=== PATIENT | male | born 1960 | race Caucasian/White ===

== ENCOUNTER 2018-01-18 21:38 | Inpatient (IN) | payer BC ==
[2018-01-18] MEDS ORDERED: SODIUM CHLORIDE 0.9% 1,000 ML IV STA ×2 (22:03)
[2018-01-18] MEDS ORDERED: ONDANSETRON 4 MG/2 ML VIAL IVP STA (22:03)
[2018-01-18] MEDS ORDERED: MORPHINE SULFATE 4 MG/ML SYRINGE IV STA (22:03)
--- NOTE | 2018-01-18 22:04 | ED ---
Chest Pain HPI - General Chief Complaint: Chest Pain Stated Complaint: Chest Pain Source: patient, RN notes reviewed, old records reviewed Mode of arrival: EMS Limitations: no limitations - History of Present Illness Initial Comments: This is a 57-year-old male the ER for evaluation patient is ER for evaluation of chest pain history of high blood pressure recent travel history no sick contacts, patient was playing best [employer] and began x-rays chest on the way home diaphoresis and shortness of breath went home be admitted for continued chest pain again no symptoms of syncope and acute the emergency room by EMS. Patient was given nitro with no help MD Complaint: chest pain -: hour(s) (2) Onset: during exertion Pain Location: left chest Pain Radiation: back Severity: moderate Severity scale (1-10): 5 Quality: tightness, heaviness Consistency: constant Improves With: nothing Worsens With: nothing Anginal Symptoms: diaphoresis, dyspnea Other Symptoms: palpitations Treatments Prior to Arrival: none - Related Data Home Medications Medication Instructions Recorded Confirmed Fexofenadine/Pseudoephedrine 1 tab PO DAILY 01/19/18 01/19/18 [Zina-D 24 Hour Tablet] Lisinopril [Zestril] 5 mg PO DAILY 01/19/18 01/19/18 Montelukast [Singulair] 10 mg PO HS 01/19/18 01/19/18 Secukinumab [Cosentyx Pen] 300 mg SQ PHILLIPS 01/19/18 01/19/18 Allergies Allergy/AdvReac Type Severity Reaction Status Date / Time No Known Allergies Allergy Verified 01/19/18 09:47 Review of Systems ROS Statement: Those systems with pertinent positive or pertinent negative responses have been documented in the HPI. ROS Other: All systems not noted in ROS Statement are negative. EKG Findings - EKG Comments: EKG Findings:: EKG shows sinus rhythm rate of 62, OK 154, QRS 90, QTc 443. Repeat. EKG shows sinus bradycardia rate of 58, OK 136, QRS 74, QTc 435 Past Medical History Past Medical History: Skin Disorder History of Any Multi-Drug Resistant Organisms: None Reported Past Surgical History: Appendectomy, Hernia Repair Additional Past Surgical History / Comment(s): facial surgery Past Psychological History: No Psychological Hx Reported Smoking Status: Never smoker Past Alcohol Use History: Rare Past Drug Use History: None Reported - Past Family History Father Additional Family Medical History / Comment(s): STROKE Mother Additional Family Medical History / Comment(s): VASCULAR TO LOWER EXT General Exam Limitations: no limitations General appearance: alert, in no apparent distress Head exam: Present: atraumatic, normocephalic, normal inspection Eye exam: Present: normal appearance, PERRL, EOMI. Absent: scleral icterus, conjunctival injection, periorbital swelling ENT exam: Present: normal exam, mucous membranes moist Neck exam: Present: normal inspection. Absent: tenderness, meningismus, lymphadenopathy Respiratory exam: Present: normal lung sounds bilaterally. Absent: respiratory distress, wheezes, rales, rhonchi, stridor Cardiovascular Exam: Present: regular rate, normal rhythm, normal heart sounds. Absent: systolic murmur, diastolic murmur, rubs, gallop, clicks GI/Abdominal exam: Present: soft, normal bowel sounds. Absent: distended, tenderness, guarding, rebound, rigid Extremities exam: Present: normal inspection, full ROM, normal capillary refill. Absent: tenderness, pedal edema, joint swelling, calf tenderness Back exam: Present: normal inspection Neurological exam: Present: alert, oriented X3, CN II-XII intact Psychiatric exam: Present: normal affect, normal mood Skin exam: Present: warm, dry, intact, normal color. Absent: rash Course Vital Signs 01/18/18 01/18/18 01/18/18 21:50 22:10 23:36 Temperature 97.9 F 99.1 F Pulse Rate 64 63 66 Respiratory 18 20 19 Rate Blood Pressure 126/85 128/92 156/88 O2 Sat by Pulse 99 99 99 Oximetry - Reevaluation(s) Reevaluation #1: Medical record is reviewed Patient is having persistent chest pain Spoke with cardiology regarding patient and troponin, they are aware and will evaluate patient in the morning Studies CTA chest is negative for acute disease Chest Pain MDM - Differential Diagnosis ACS - MDM 57 male the ER for evaluation of chest pain acute chest pain classic chest pain of left-sided chest pain weakness shortness of breath. Patient be admitted and anticoagulation for cardiology evaluation Critical Care Time Critical Care Time: Yes Total Critical Care Time: 31 Disposition Clinical Impression: Chest pain Disposition: ADMITTED IP TO THIS HOSP Condition: Undetermined Is patient prescribed a controlled substance at d/c from ED?: No
[2018-01-18 22:33] LABS: Basophils % (A) 0 %; Eosinophils % (A) 0 %; HGB 14.9 gm/dL (13.0-17.5); Lymphocytes # (A) 1.2 k/uL (1.0-4.8); Lymphocytes % (A) 9 %; MCH 30.4 pg (25.0-35.0); MCHC 35.4 g/dL (31.0-37.0); MCV 85.9 fL (80.0-100.0); Mean Platelet Volume 7.3; Monocytes # (A) 0.5 k/uL (0-1.0); Monocytes % (A) 3 %; Neutrophils # (A) 12.6 k/uL (1.3-7.7); Neutrophils % (A) 87 %; Platelet Count 222 k/uL (150-450); RBC 4.89 m/uL (4.30-5.90); RDW 12.3 % (11.5-15.5); WBC 14.5 k/uL (3.8-10.6)
[2018-01-18 22:36] LABS: Calcium 9.5 mg/dL (8.4-10.2); Magnesium 1.6 mg/dL (1.6-2.3); Potassium 3.4 mmol/L (3.5-5.1); Total Bilirubin 0.4 mg/dL (0.2-1.3); Total Protein 6.7 g/dL (6.3-8.2)
[2018-01-18 22:46] LABS: D-Dimer 0.5 mg/L FEU (<0.60); INR 1.1 (<1.2); Prothrombin Time 10.4 sec (9.0-12.0)
[2018-01-18 22:47] LABS: Partial Thromboplastin Time 20.2 sec (22.0-30.0)
[2018-01-18 22:48] LABS: Troponin I 0.032 ng/mL (0.000-0.034)
--- NOTE | 2018-01-18 23:19 | CT ---
EXAMINATION TYPE: CT angio chest DATE OF EXAM: 01/18/2018 11:04 PM COMPARISON: None HISTORY: Chest pain after exertion. CT DLP: 306.7 mGycm Automated exposure control for dose reduction was used. CONTRAST: CTA scan of the thorax is performed with IV Contrast, patient injected with 100ml mL of Isovue 370, p ulmonary embolism protocol. There are 3-D post processed images.. FINDINGS: The lungs are clear of infiltrate. There is no evidence of a pulmonary mass. There is no pleural effu esther. Heart size is normal. There is no pericardial effusion. There is normal contrast opacification of the pulmonary arteries. There are no filling defects. There are no hilar masses. There is no mediastinal adenopathy. The bony thorax is intact. There is mild sp urring in the thoracic spine. IMPRESSION: NEGATIVE EXAM. NO EVIDENCE OF PULMONARY EMBOLISM.
--- NOTE | 2018-01-19 00:15 | CT ---
EXAMINATION TYPE: CT abdomen pelvis w con DATE OF EXAM: 01/18/2018 COMPARISON: None HISTORY: Chest pain after exertion. CT DLP: 768.2 mGycm Automated exposure control for dose reduction was used. TECHNIQUE: Helical acquisition of images was performed from the lung bases through the pelvis. CONTRAST: Performed without Oral Contrast and with IV Contrast, patient injected with 100ml mL of Isovue 370. FINDINGS: Lung bases are clear. There is no pleural effusion. Heart size is normal. There is no pericardial eff usion. There is 1 cm cyst in the left lobe of the liver. There are 1 cm cyst in the inferior right lobe of t he liver. There is 2 cm cyst in the anterior right lobe of the liver adjacent to the gallbladder. The bile ducts are not dilated. Spleen appears normal. There is no pancreatic mass. The stomach is large . There is no adrenal mass. Kidneys show satisfactory contrast opacification. There is no hydronephrosis. There is no retroperito susie adenopathy. Bladder distends smoothly. There is no inguinal hernia. There is no free fluid in th e pelvis. There is some retained fecal material throughout the large bowel. There is no mesenteric ed kerri or adenopathy. Appendix appears normal. There is L5 spondylolysis. There is a second-degree L5-S1 spondylolisthesis. IMPRESSION: SMALL HEPATIC CYSTS. No evidence of appendicitis. Mild constipation. Second-degree L5-S1 spondylolisthesis.
[2018-01-19] MEDS ORDERED: HEPARIN SODIUM,PORCINE 5,000 UNIT/ML 1 ML VIAL IV ONE (00:17)
[2018-01-19] MEDS ORDERED: MORPHINE SULFATE 2 MG/ML SYRINGE IVP PRN (00:17)
[2018-01-19] MEDS ORDERED: HEPARIN SODIUM,PORCINE 5,000 UNIT/ML 1 ML VIAL IV PRN (00:17)
[2018-01-19] MEDS ORDERED: NITROGLYCERIN SL TABS 0.4 MG TAB SUBLINGUAL PRN ×2 (00:17→06:40)
[2018-01-19] MEDS: HEPARIN SOD,PORK IN 0.45% NACL 25,000 UNIT in 0.45% NACL 1 500ML.BAG IV SCH ×2 (00:37→00:39)
[2018-01-19 01:36] VITALS: BMI 24.3
[2018-01-19 03:28] LABS: Mean Platelet Volume 6.8; Platelet Count 210 k/uL (150-450)
[2018-01-19 04:02] LABS: Creatine Kinase MB 40.8 ng/mL (0.0-2.4)
[2018-01-19 04:28] LABS: Troponin I 1.89 ng/mL (0.000-0.034)
[2018-01-19] MEDS: METOPROLOL TARTRATE 25 MG TAB PO SCH ×2 (06:34→20:56)
[2018-01-19] MEDS: ATORVASTATIN 80 MG TAB PO SCH (06:34)
[2018-01-19] MEDS ORDERED: ALPRAZolam 0.25 MG TAB PO PRN (06:40)
[2018-01-19] MEDS ORDERED: ALPRAZolam 0.5 MG TAB PO PRN (06:40)
[2018-01-19] MEDS ORDERED: SODIUM CHLORIDE 0.9% 1,000 ML in EMPTY BAG 1 BAG IV ONE (06:40)
[2018-01-19] MEDS ORDERED: ASPIRIN 325 MG TAB PO ONE (06:40)
[2018-01-19] MEDS ORDERED: ATORVASTATIN 80 MG TAB PO ONE (06:40)
[2018-01-19] MEDS ORDERED: IV FLUID CONTINUATION 350 ML IV ONE (06:55)
--- NOTE | 2018-01-19 06:57 | CONS ---
CONSULTATION Mr. 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 His discomfort started yesterday about 10 minutes after finishing his basketball game and driving home. It was persisting with radiating across the chest. He came into the emergency room and persisted in having discomfort throughout the night. The patient has no prior similar symptoms. He is usually active physically without difficulty, has no exertional chest pain on a regular basis. No dizziness. No palpitation. No syncope. No PND, orthopnea. No peripheral edema. His coronary risk factors are positive for hypertension. He is nondiabetic. Nonsmoker. His lipid profile has been stable. There is no family history of premature coronary disease. MEDICATION: At home include lisinopril 5 mg daily and Singulair 10 mg daily. REVIEW OF SYSTEMS: RESPIRATORY system: He has no history of documented asthma, emphysema or bronchitis. GI system: No recent GI bleeding. No peptic ulcer disease. system: No dysuria or hematuria. Nervous system: No stroke or seizure. PHYSICAL EXAMINATION: He is a 57-year-old male, alert, oriented, in no apparent distress. Blood pressure 143/80 with a heart rate in the 60s. HEAD: Normocephalic. Eyes sclerae anicteric. Neck: Good upstroke. No bruit. No jugular venous distention. LUNGS: Clear to auscultation. HEART: Regular rate and rhythm S1, S2. No S3. No S4. No murmur or rub. ABDOMEN: Soft, nontender. Positive bowel sounds. No megaly. EXTREMITIES: No edema. Intact distal pulses. LAB DATA: Lab data revealed troponin 0.032 and 1.89, BUN and creatinine 28 and 1.12. Potassium 3.4. Hemoglobin 14.9, white blood cell 14.5. CT angiogram of the chest revealed no evidence of pulmonary embolism. His CT scan of the abdomen showed 2nd degree L5-S1 spondylolysis. EKG revealed a sinus mechanism, normal axis, evidence of left ventricular hypertrophy with nonspecific ST-segment changes with T-wave inversion in leads 3 and AVF. IMPRESSION: 1. Chest discomfort with minimal troponin elevation suggestive of non ST-segment elevation myocardial infarction. 2. History of hypertension. RECOMMENDATION: In view of findings and anatomy, I have recommended proceeding with coronary angiography to assess his status and guide his treatment. The rationale behind the procedure as well as risks and complications were discussed with the patient and his and they are in full understanding and agreement. Thank you for this consult. We will follow with you. CHARLEY / STEPHEN: [id number] /
[2018-01-19] MEDS ORDERED: LIDOCAINE 1% INJ 10MG/ML (20 ML MDV) ONE (07:05)
[2018-01-19] MEDS ORDERED: HEPARIN SODIUM 1,000 UN/ML (10ML VL) ONE (07:06)
[2018-01-19] MEDS ORDERED: VERAPAMIL 2.5 MG/ML 2 ML AMP ONE (07:06)
[2018-01-19] MEDS ORDERED: fentaNYL (PF) 50 MCG/ML 2 ML AMP ONE (07:06)
[2018-01-19] MEDS ORDERED: fentaNYL (PF) 50 MCG/ML 2 ML AMP IV ONE (07:09)
[2018-01-19] MEDS ORDERED: LIDOCAINE 1% INJ 10MG/ML (20 ML MDV) SQ ONE (07:10)
[2018-01-19] MEDS ORDERED: VERAPAMIL SYRINGE (5 MG/10 ML) INTRAARTER ONE (07:15)
[2018-01-19] MEDS ORDERED: NITROGLYCERIN 1000MCG/10ML SYRINGE INTRACORON ONE (07:35)
[2018-01-19] MEDS ORDERED: ADENOSINE 90 MG in SODIUM CHLORIDE 0.9% 60 ML IVP ONE (07:36)
[2018-01-19] MEDS ORDERED: CLOPIDOGREL 75 MG TAB ONE (07:40)
[2018-01-19] MEDS ORDERED: IOPAMIDOL-300 50ML BTL INJ ONE (07:44)
[2018-01-19] MEDS ORDERED: CLOPIDOGREL 75 MG TAB PO ONE (07:44)
[2018-01-19] MEDS ORDERED: IOPAMIDOL-370 125ML BTL INJ ONE (07:44)
[2018-01-19] MEDS ORDERED: RX INFO: IV CONTRAST WAS GIVEN 1 EACH MISC MISCELLANE PRN (08:02)
[2018-01-19] MEDS ORDERED: SODIUM CHLORIDE 0.9% 1,000 ML IV SCH (08:15)
--- NOTE | 2018-01-19 08:42 | CC ---
CARDIAC CATHETERIZATION REPORT Mr. Lopes is a 57-year-old male with no prior documented history of coronary artery disease who yesterday complained of substernal chest discomfort that persisted. His EKG showed no acute changes, but his troponin was mildly elevated. In view of that, recommendation was made regarding cardiac catheterization. The procedure as well as the risks and complications were discussed with the patient who is in full understanding and agreement. PROCEDURE: Patient was brought to [facility] in the fasting semi-sedated state after receiving fentanyl and Benadryl and achieving moderate conscious sedated state. Using Xylocaine anesthesia in the Seldinger technique, a 6-Kiswahili sheath was introduced in the right radial artery. Selective right and left coronary angiography performed using 5-Kiswahili 3.5 bend, right and left Yeimy catheters. Multiple views of the coronary artery including hemiaxial views were obtained. Following that a 5-Kiswahili tight pigtail catheter was introduced in the left ventricle and a 30-degree PATEL view of the left ventricle was obtained. Following that, a 6-Kiswahili FL3.5 guiding catheter introduced in the system and after cannulating the left main a Doppler flow wire was advanced and positioned in distal LAD. Subsequently, iFR and FFR were calculated after an infusion of adenosine per protocol. Following that, wire was withdrawn and catheter was removed. Sheath was removed. Hemostasis was obtained with deployment of a TR band. There was no immediate complication. Patient was returned to his room in stable condition. Of note, the patient received 5000 units of intravenous heparin as well as intra-arterial verapamil. FINDINGS: LEFT MAIN: This is a large-sized vessel bifurcating left circumflex, left anterior descending artery. The left main coronary artery has no evidence of high-grade stenosis. LEFT ANTERIOR DESCENDING ARTERY: This is a large-sized vessel reaching to the apex with a wraparound apex segment giving rise to a large proximal diagonal branch. At the takeoff of the first septal orthotic technician, there is a plaque of about 30% to 40%. The first septal orthotic technician has an intraluminal thrombus. It is not large in caliber. The rest of the vessel has no high-grade stenosis. LEFT CIRCUMFLEX: This is a nondominant vessel, large in caliber giving rise to 3 obtuse marginal branches of small to moderate caliber. The left circumflex in the mid segment has mild obstructive disease of 20% to 30% without any evidence of high-grade stenosis. RIGHT CORONARY ARTERY: This is a large dominant vessel bifurcating distally PDA and posterolateral segment and branches. The right coronary artery has mild plaque proximally of 10% without any evidence of high-grade stenosis LEFT VENTRICULOGRAM: Left ventriculogram was performed in 30-degree PATEL view and revealed a normal left ventricular size. There was minimal apical hypokinesis. Ejection fraction is 50%. There was no significant mitral regurgitation. HEMODYNAMICS: There was no gradient across the aortic valve. The left ventricular end- diastolic pressure was 18 to 20 mmHg. Fractional flow reserve in the LAD was 90% and iFR was 94%. RESULTS: 1. Moderate plaque in the proximal left anterior descending artery with the appearance of intracoronary thrombus in the first septal orthotic technician. 2. Mild disease in the left circumflex and the right coronary artery. 3. Minimally impaired left ventricular systolic function. 4. Non hemodynamically significant lesion in the left anterior descending artery by fractional flow reserve. RECOMMENDATION: In view of finding anatomy, recommend to continue medical therapy with aggressive coronary risk modifications that have been initiated. It is possible that the patient has a plaque rupture involving the septal orthotic technician and maybe the proximal LAD. Those findings and recommendations were discussed with the patient and his family and they are in full understanding and agreement. Duration of procedure: 35 minutes. MMODL / IJN: [id number] /
[2018-01-19] MEDS: LISINOPRIL 5 MG TAB PO SCH (10:16)
[2018-01-19 10:57] LABS: Cholesterol 200 mg/dL (<200); HDL Cholesterol 52 mg/dL (40-60); LDL Cholesterol,Calculated 137 mg/dL (0-99); Triglycerides 54 mg/dL (<150)
[2018-01-19 11:47] LABS: Creatine Kinase MB 91.3 ng/mL (0.0-2.4)
--- NOTE | 2018-01-19 12:08 | ECHOF ---
Referral Reason:cp MEASUREMENTS -------- HEIGHT: 175.3 cm WEIGHT: 74.8 kg BP: 143/81 RVIDd: 2.7 cm (< 3.3) IVSd: 1.1 cm (0.6 - 1.1) LVIDd: 5.1 cm (3.9 - 5.3) LVPWd: 1.0 cm (0.6 - 1.1) IVSs: 1.4 cm LVIDs: 4.0 cm LVPWs: 1.4 cm LAESV Index (A-L): 25.58 ml/m Ao Diam: 3.2 cm (2.0 - 3.7) AV Cusp: 2.0 cm (1.5 - 2.6) LA Diam: 3.0 cm (2.7 - 3.8) EPSS: 0.9 cm MV E Juancho: 0.71 m/s MV DecT: 217 ms MV A Juancho: 0.51 m/s MV E/A Ratio: 1.38 RAP: 5.00 mmHg RVSP: 18.14 mmHg MV EF SLOPE: 164.45 mm/s (70 - 150) MV EXCURSION: 2.22 cm (> 18.000) FINDINGS -------- Resting bradycardia (HR<60bpm). This was a technically good study. The left ventricular size is normal. There is borderline concentric left ventricular hypertrophy. Overall left ventricular systolic function is mildly impaired with, an EF between 45 - 50 %. Infer iorlateral Hypokinesis Inferior Hypokinesis The right ventricle is normal in size and function. Normal LA size by volume 22+/-6 ml/m2. The right atrium is normal in size. Aortic valve is trileaflet and is mildly thickened. There is no evidence of aortic regurgitation. There is no evidence of aortic stenosis. The mitral valve leaflets are mildly thickened. There is trace to mild mitral regurgitation. Trace tricuspid regurgitation present. Right ventricular systolic pressure is normal at < 35 mmHg. There is no evidence of pulmonary hypertension. Trace/mild (physiologic) pulmonic regurgitation. The aortic root size is normal. Normal inferior vena cava with normal inspiratory collapse consistent with estimated right atrial pre ssure of 5 mmHg. There is no pericardial effusion. CONCLUSIONS -------- 1. Resting bradycardia (HR<60bpm). 2. This was a technically good study. 3. The left ventricular size is normal. 4. There is borderline concentric left ventricular hypertrophy. 5. Overall left ventricular systolic function is mildly impaired with, an EF between 45 - 50 %. 6. Inferiorlateral Hypokinesis 7. Inferior Hypokinesis 8. Normal LA size by volume 22+/-6 ml/m2. 9. Aortic valve is trileaflet and is mildly thickened. 10. The mitral valve leaflets are mildly thickened. 11. There is trace to mild mitral regurgitation. 12. Trace tricuspid regurgitation present. 13. Right ventricular systolic pressure is normal at < 35 mmHg. 14. There is no evidence of pulmonary hypertension. 15. Trace/mild (physiologic) pulmonic regurgitation. 16. The aortic root size is normal. 17. There is no pericardial effusion. BIOMEDICAL SERVICE ENGINEER: Salty Hodge RDCS
--- NOTE | 2018-01-19 12:19 | P.HPIM ---
History of Present Illness Patient is a pleasant 56-year-old gentleman with the no known not coronary artery disease history came in with compensative chest pressure like sensation after playing basketball and the when he was driving home and constant pain pressure-like sensation moderate in severity partially resolved with nitroglycerin with a associate shortness of breath denied any lightheadedness and diaphoresis patient is found to have elevated troponin of 1.8 patient underwent cardiac catheterization and believed to have plaque rupture, did not receive any stents. Medical therapy was initiated with Metoprolol statin lisinopril and the antiplatelet therapy. Patient will be monitored overnight patient denied any fever chills cough runny nose. Patient did not have any significant EKG changes. His chest pain radiated across the chest Review of Systems REVIEW OF SYSTEMS: CONSTITUTIONAL: No fever, no malaise, no fatigue. HEENT: No recent visual problems or hearing problems. Denied any sore throat. CARDIOVASCULAR: No orthopnea, PND, no palpitations, no syncope. PULMONARY: no cough, no hemoptysis. GASTROINTESTINAL: No diarrhea, no nausea, no vomiting, no abdominal pain. Normoactive bowel sounds. NEUROLOGICAL: No headaches, no weakness, no numbness. HEMATOLOGICAL: Denies any bleeding or petechiae. GENITOURINARY: Denies any burning micturition, frequency, or urgency. MUSCULOSKELETAL/RHEUMATOLOGICAL: Denies any joint pain, swelling, or any muscle pain. ENDOCRINE: Denies any polyuria or polydipsia. The rest of the 14-point review of systems is negative. Past Medical History Past Medical History: Chest Pain / Angina, Hypertension, Skin Disorder History of Any Multi-Drug Resistant Organisms: None Reported Past Surgical History: Appendectomy, Hernia Repair Additional Past Surgical History / Comment(s): facial surgery Past Psychological History: No Psychological Hx Reported Smoking Status: Never smoker Past Alcohol Use History: Rare Past Drug Use History: None Reported - Past Family History Father Additional Family Medical History / Comment(s): STROKE Mother Additional Family Medical History / Comment(s): VASCULAR TO LOWER EXT Medications and Allergies Home Medications Medication Instructions Recorded Confirmed Type Fexofenadine/Pseudoephedrine 1 tab PO DAILY 01/19/18 01/19/18 History [Zina-D 24 Hour Tablet] Lisinopril [Zestril] 5 mg PO DAILY 01/19/18 01/19/18 History Montelukast [Singulair] 10 mg PO HS 01/19/18 01/19/18 History Secukinumab [Cosentyx Pen] 300 mg SQ PHILLIPS 01/19/18 01/19/18 History Allergies Allergy/AdvReac Type Severity Reaction Status Date / Time No Known Allergies Allergy Verified 01/19/18 09:47 Physical Exam Vitals: Vital Signs Temp Pulse Pulse Resp BP BP Pulse Ox 01/19/18 12:00 57 L 01/19/18 11:35 57 L 16 115/69 98 01/19/18 10:15 62 18 119/69 96 01/19/18 09:45 50 L 18 117/78 96 01/19/18 09:15 54 L 18 120/73 96 01/19/18 09:00 53 L 16 118/72 97 01/19/18 08:45 54 L 16 120/76 95 01/19/18 08:32 97.1 F L 52 L 16 116/79 98 01/19/18 08:00 52 L 01/19/18 03:32 97.6 F 59 L 16 143/81 99 01/19/18 01:05 98.3 F 59 L 16 136/85 98 01/18/18 23:36 99.1 F 66 19 156/88 99 01/18/18 22:10 63 20 128/92 99 01/18/18 21:50 97.9 F 64 18 126/85 99 Intake and Output 01/18/18 01/19/18 01/19/18 22:59 06:59 14:59 Intake Total 250.599 261.75 Balance 250.599 261.75 Intake: IV 250 21.75 Intake, IV Titration 0.599 Amount Heparin Sod,Pork in 0.45% 0.599 NaCl 25,000 unit In 0.45 % NaCl 1 500ml.bag @ 12 UNITS/KG/HR 17.96 mls/hr IV .Q24H [facility] Rx#: [id number] Oral 240 Other: Weight 74.843 kg 74.843 kg PHYSICAL EXAMINATION: GENERAL: The patient is alert and oriented x3, not in any acute distress. Well developed, well nourished. HEENT: Pupils are round and equally reacting to light. EOMI. No scleral icterus. No conjunctival pallor. Normocephalic, atraumatic. No pharyngeal erythema. No thyromegaly. CARDIOVASCULAR: S1 and S2 present. No murmurs, rubs, or gallops. PULMONARY: Chest is clear to auscultation, no wheezing or crackles. ABDOMEN: Soft, nontender, nondistended, normoactive bowel sounds. No palpable organomegaly. MUSCULOSKELETAL: No joint swelling or deformity. EXTREMITIES: No cyanosis, clubbing, or pedal edema. NEUROLOGICAL: Gross neurological examination did not reveal any focal deficits. SKIN: No rashes. Results CBC & Chem 7: 01/19/18 03:18 01/18/18 22:05 Labs: Abnormal Lab Results - Last 24 Hours (Table) 01/18/18 01/18/18 01/18/18 Range/Units 22:05 22:05 22:05 WBC 14.5 H (3.8-10.6) k/uL Neutrophils # 12.6 H (1.3-7.7) k/uL APTT (22.0-30.0) sec Potassium 3.4 L (3.5-5.1) mmol/L Chloride 108 H (98-107) mmol/L BUN 28 H (9-20) mg/dL Glucose 124 H (74-99) mg/dL Total Creatine Kinase 225 H (55-170) U/L CK-MB (CK-2) 5.0 H (0.0-2.4) ng/mL Troponin I (0.000-0.034) ng/mL Cholesterol (<200) mg/dL LDL Cholesterol, Calc (0-99) mg/dL 01/18/18 01/19/18 01/19/18 Range/Units 22:05 03:18 06:18 WBC (3.8-10.6) k/uL Neutrophils # (1.3-7.7) k/uL APTT 20.2 L (22.0-30.0) sec Potassium (3.5-5.1) mmol/L Chloride (98-107) mmol/L BUN (9-20) mg/dL Glucose (74-99) mg/dL Total Creatine Kinase 542 H (55-170) U/L CK-MB (CK-2) 40.8 H (0.0-2.4) ng/mL Troponin I 1.890 H* (0.000-0.034) ng/mL Cholesterol 200 H (<200) mg/dL LDL Cholesterol, Calc 137 H (0-99) mg/dL 01/19/18 Range/Units 10:43 WBC (3.8-10.6) k/uL Neutrophils # (1.3-7.7) k/uL APTT (22.0-30.0) sec Potassium (3.5-5.1) mmol/L Chloride (98-107) mmol/L BUN (9-20) mg/dL Glucose (74-99) mg/dL Total Creatine Kinase 914 H (55-170) U/L CK-MB (CK-2) (0.0-2.4) ng/mL Troponin I (0.000-0.034) ng/mL Cholesterol (<200) mg/dL LDL Cholesterol, Calc (0-99) mg/dL Thrombosis Risk Factor Assmnt - Choose All That Apply Any of the Below Risk Factors Present?: Yes Each Factor Represents 1 point: Age 41-60 years Other Risk Factors: No Other congenital or acquired thrombophilia - If yes, enter type in comment: No Thrombosis Risk Factor Assessment Total Risk Factor Score: 1 Thrombosis Risk Factor Assessment Level: Low Risk Assessment and Plan Plan: -Non-ST elevation microinfarction: Patient had a plaque rupture patient did not receive any stents medical therapy as mentioned above. -Possibly of mildly depressed LV function secondary to acute myocardial infarction pending echocardiogram continue with lisinopril -Hypertension Patient will be monitored daily possibility of discharge tomorrow lifestyle modifications.
[2018-01-19 12:25] LABS: Troponin I 14.6 ng/mL (0.000-0.034)
[2018-01-20 06:54] LABS: Platelet Count 177 k/uL (150-450)
[2018-01-20 07:21] LABS: Anion Gap 5 mmol/L; Blood Urea Nitrogen 14 mg/dL (9-20); Calcium 9.2 mg/dL (8.4-10.2); Carbon Dioxide 25 mmol/L (22-30); Chloride 110 mmol/L (98-107); Cholesterol 194 mg/dL (<200); Glucose 87 mg/dL (74-99); HDL Cholesterol 46 mg/dL (40-60); LDL Cholesterol,Calculated 131 mg/dL (0-99); Potassium 4.2 mmol/L (3.5-5.1); Sodium 140 mmol/L (137-145); Triglycerides 87 mg/dL (<150)
[2018-01-20] MEDS ORDERED: CLOPIDOGREL 75 MG TAB PO SCH (08:00)
[2018-01-20] MEDS: METOPROLOL TARTRATE 25 MG TAB PO SCH ×2 (08:22→21:02)
[2018-01-20] MEDS: LISINOPRIL 5 MG TAB PO SCH (08:22)
[2018-01-20] MEDS: ATORVASTATIN 80 MG TAB PO SCH (08:23)
[2018-01-20] MEDS: ASPIRIN 81 MG PO SCH (08:23)
[2018-01-20] MEDS ORDERED: ASPIRIN 325 MG TAB PO SCH (09:00)
--- NOTE | 2018-01-20 11:08 | P.PN ---
Subjective 57-year-old male admitted for non-ST elevation myocardial infarction underwent cardiac catheterization and found to have plaque rupture. Patient's troponin today is around 14 and cardiology is recommending monitoring 1 more day continue with antiplatelet therapy, statin. Echocardiogram showed minimally depressed ejection fraction. Patient was started on low-dose of STEVEN inhibitor because of that and patient is on beta liz as well. Constitutional: Denied any fatigue denied any fever. Cardio vascular: denied any chest pain, palpitations Gastrointestinal denied any nausea vomiting Pulmonary: Denied any shortness of breath cough Neurologic denied any new focal deficits All inpatient medications were reviewed and appropriate changes in these medications as dictated in the interval history and assessment and plan. Objective - Vital Signs Vital signs: Vital Signs Temp 98.0 F 01/19/18 16:00 Pulse 60 01/20/18 08:00 Resp 16 01/20/18 08:00 BP 123/70 01/20/18 08:00 Pulse Ox 96 01/20/18 08:00 Intake & Output 01/19/18 01/20/18 01/20/18 18:59 06:59 18:59 Intake Total 801.75 Balance 801.75 Weight 75.2 kg Intake: IV 21.75 Oral 780 Other: # Voids 1 1 - Exam PHYSICAL EXAMINATION: GENERAL: The patient is alert and oriented x3, not in any acute distress. Well developed, well nourished. HEENT: Pupils are round and equally reacting to light. EOMI. No scleral icterus. No conjunctival pallor. Normocephalic, atraumatic. No pharyngeal erythema. No thyromegaly. CARDIOVASCULAR: S1 and S2 present. No murmurs, rubs, or gallops. PULMONARY: Chest is clear to auscultation, no wheezing or crackles. ABDOMEN: Soft, nontender, nondistended, normoactive bowel sounds. No palpable organomegaly. MUSCULOSKELETAL: No joint swelling or deformity. EXTREMITIES: No cyanosis, clubbing, or pedal edema. NEUROLOGICAL: Gross neurological examination did not reveal any focal deficits. SKIN: No rashes. - Labs CBC & Chem 7: 01/20/18 06:05 01/20/18 06:05 Labs: Abnormal Lab Results - Last 24 Hours (Table) 01/19/18 01/20/18 Range/Units 10:43 06:05 Chloride 110 H (98-107) mmol/L Total Creatine Kinase 914 H (55-170) U/L CK-MB (CK-2) 91.3 H (0.0-2.4) ng/mL Troponin I 14.600 H* (0.000-0.034) ng/mL LDL Cholesterol, Calc 131 H (0-99) mg/dL Assessment and Plan Plan: -Non-ST elevation microinfarction: Patient had a plaque rupture patient did not receive any stents medical therapy as mentioned above. -Mild acute systolic dysfunction with ejection fraction of 45-50% patient is not in heart failure exacerbation. -Hypertension Patient will be monitored daily possibility of discharge tomorrow lifestyle modifications.
--- NOTE | 2018-01-20 15:23 | P.PN ---
Subjective This patient was admitted with the chest pain and [place] non-Q-wave myocardial infarction. Catheterization revealed about 40% stenosis in the LAD suggestive for ruptured plaque. Maximum troponin of 14 is noted ventriculography revealed apical hypokinesia and was explained about the findings of the catheterization medical treatment is recommended switch him from placenta Plavix To Brillianta. Patient is ambulating in the hallway without any chest pains. Objective - Vital Signs Vital signs: Vital Signs Temp 98.0 F 01/19/18 16:00 Pulse 54 L 01/20/18 12:00 Resp 16 01/20/18 12:00 BP 147/91 01/20/18 12:00 Pulse Ox 99 01/20/18 12:00 Intake & Output 01/19/18 01/20/18 01/20/18 18:59 06:59 18:59 Intake Total 801.75 Balance 801.75 Weight 75.2 kg Intake: IV 21.75 Oral 780 Other: # Voids 1 1 2 - Exam Patient is resting comfortably in the bed Patient's vital signs are reviewed. The patient is alert awake and in no acute distress. HEENT negative. Neck-supple no increase in JVP noted no carotid bruits noted. Chest-symmetrical. Heart-first and second heart sounds are normal. No S3 or S4 is noted. No significant murmurs are noted. Lungs bilateral good at entry is noted. No rales or rhonchi are noted Abdomen-soft. Liver and spleen are not enlarged. The bowel sounds are normal. No tenderness noted Extremities-peripheral pulses since are 2+. No significant leg edema noted. Neuro-no significant gross abnormality noted. - Labs CBC & Chem 7: 01/20/18 06:05 01/20/18 06:05 Labs: Abnormal Lab Results - Last 24 Hours (Table) 01/20/18 Range/Units 06:05 Chloride 110 H (98-107) mmol/L LDL Cholesterol, Calc 131 H (0-99) mg/dL Assessment and Plan Assessment: This patient is status post non-ST segment elevation myocardial infarction. We will also the patient for another 24 hours and can be discharged home tomorrow
[2018-01-20] MEDS ORDERED: CLOPIDOGREL 75 MG TAB PO STA ×2 (15:26→15:37)
[2018-01-21 07:44] LABS: Mean Platelet Volume 6.8; Platelet Count 204 k/uL (150-450)
[2018-01-21] MEDS: LISINOPRIL 5 MG TAB PO SCH (08:37)
[2018-01-21] MEDS: ATORVASTATIN 80 MG TAB PO SCH (08:37)
[2018-01-21] MEDS: TICAGRELOR 90 MG TAB PO SCH ×2 (08:37→08:38)
[2018-01-21] MEDS: METOPROLOL TARTRATE 25 MG TAB PO SCH (08:37)
[2018-01-21] MEDS: ASPIRIN 81 MG PO SCH (08:37)
[2018-01-21 08:40] VITALS: RESP 16; TEMP 98
--- NOTE | 2018-01-21 10:12 | P.DS ---
Providers Date of admission: 01/19/18 08:46 Attending physician: Arlene Hendrickson Consults: 01/19/18 00:17 Consult Physician Urgent Consulting Provider: Trina Basurto Consult Reason/Comments: cp Do you want consulting provider notified?: Yes Primary care physician: Nimo Santana [facility] Course: 57-year-old male admitted for non-ST elevation myocardial infarction underwent cardiac catheterization and found to have plaque rupture. Patient's troponin today is around 14 and cardiology is recommending monitoring 1 more day continue with antiplatelet therapy, statin. Echocardiogram showed minimally depressed ejection fraction. Patient was started on low-dose of STEVEN inhibitor because of that and patient is on beta liz as well. 01/21/2018 Patient is clinically doing well if cleared by cardiology patient will be discharged today although medication reconciliation that is documented in this note is not accurate please refer to the the final discharge medication document for further details. Cardiology will decide on his discharge medications. PHYSICAL EXAMINATION: GENERAL: The patient is alert and oriented x3, not in any acute distress. Well developed, well nourished. HEENT: Pupils are round and equally reacting to light. EOMI. No scleral icterus. No conjunctival pallor. Normocephalic, atraumatic. No pharyngeal erythema. No thyromegaly. CARDIOVASCULAR: S1 and S2 present. No murmurs, rubs, or gallops. PULMONARY: Chest is clear to auscultation, no wheezing or crackles. ABDOMEN: Soft, nontender, nondistended, normoactive bowel sounds. No palpable organomegaly. MUSCULOSKELETAL: No joint swelling or deformity. EXTREMITIES: No cyanosis, clubbing, or pedal edema. NEUROLOGICAL: Gross neurological examination did not reveal any focal deficits. SKIN: No rashes. Assessment and Plan Plan: -Non-ST elevation microinfarction: Patient had a plaque rupture patient did not receive any stents medical therapy as mentioned above. -Mild acute systolic dysfunction with ejection fraction of 45-50% patient is not in heart failure exacerbation. -Hypertension -Psoriasis Patient Condition at Discharge: Undetermined Plan - Discharge Summary New Discharge Prescriptions: No Action Lisinopril [Zestril] 5 mg PO DAILY Montelukast [Singulair] 10 mg PO HS Fexofenadine/Pseudoephedrine [Zina-D 24 Hour Tablet] 1 tab PO DAILY Secukinumab [Cosentyx Pen] 300 mg SQ PHILLIPS Discharge Medication List Fexofenadine/Pseudoephedrine [Zina-D 24 Hour Tablet] 1 tab PO DAILY 01/19/18 [History] Lisinopril [Zestril] 5 mg PO DAILY 01/19/18 [History] Montelukast [Singulair] 10 mg PO HS 01/19/18 [History] Secukinumab [Cosentyx Pen] 300 mg SQ PHILLIPS 01/19/18 [History] Follow up Appointment(s)/Referral(s): Trina Basurto MD [STAFF PHYSICIAN] - 01/26/18 8:30 am (Thursday) Nimo Anders III, MD [Primary Care Provider] - 01/25/18 1:30 pm Patient Instructions/Handouts: Metoprolol (By mouth), Aspirin (By mouth), Atorvastatin (By mouth), Clopidogrel (By mouth), Chest Pain (ED) Discharge Disposition: HOME SELF-CARE
[2018-01-21 12:08] VITALS: BP 131/82; PULSE 50
--- NOTE | 2018-01-21 15:49 | P.PN ---
Subjective Progress Note Date: 01/21/18 This is a pleasant 57-year-old gentleman who presented to the hospital with non-Q-wave myocardial infarction, cardiac catheterization revealed a 40% stenosis in the LAD suggestive of plaque rupture. Third troponin came back at 14.6. Echocardiogram with Doppler study was performed which revealed apical hypokinesia. Patient was seen and examined today, denied any further chest pain. He's been up ambulating in the suresh without any difficulty. Hemodynamically he is stable today. Heart rate at rest around 50, with ambulation into the low 70s. Objective - Vital Signs Vital signs: Vital Signs Temp 98.0 F 01/21/18 12:07 Pulse 50 L 01/21/18 14:56 Resp 16 01/21/18 14:56 BP 131/82 01/21/18 12:07 Pulse Ox 99 01/21/18 12:07 Intake & Output 01/20/18 01/21/18 01/21/18 18:59 06:59 18:59 Intake Total 410 536 Output Total 500 Balance 410 36 Weight 74.4 kg Intake: Oral 410 536 Output: Urine 500 Other: Voiding Method Toilet Toilet # Voids 2 1 2 - Exam PHYSICAL EXAMINATION: GENERAL: 87-year-old gentleman in no acute distress at the time of my examination HEENT: Head is atraumatic, normocephalic. Pupils equal, round. Sclera anicteric. Conjunctiva are clear. Mucous membranes of the mouth are moist. Neck is supple. There is no elevated jugular venous pressure. No carotid bruit is heard. HEART EXAMINATION: Heart S1, S2 normal. No murmur or gallop heard. CHEST EXAMINATION: Lungs are clear to auscultation and precussion. No chest wall tenderness is noted on palpation or with deep breathing. ABDOMEN: Soft, nontender. Bowel sounds are heard. No organomegaly noted. EXTREMITIES: 2+ peripheral pulses with no evidence of peripheral edema and no calf tenderness noted. NEUROLOGIC patient is awake, alert and oriented 3 . . - Labs CBC & Chem 7: 01/21/18 07:00 01/20/18 06:05 Assessment and Plan Plan: Assessment and plan #1 non-ST elevation myocardial infarction, cardiac catheterization revealed a 40 % lesion in the LAD with evidence of plaque rupture. #2 family history of premature coronary artery disease #3 ischemic cardiomyopathy #4 hypertension #5 hyperlipidemia Plan Patient will be discharged home today. Follow-up appointment will be made with Dr. Basurto in the office post discharge. Patient is discharged home on dual antiplatelet therapy in the form of a baby aspirin and Brilinta. He will also be on metoprolol 25 mg by mouth twice a day and lisinopril 5 mg daily along with sublingual nitroglycerin as needed for chest pain. DNP note has been reviewed, I agree with a documented findings and plan of care. Patient was seen and examined.
== END 2018-01-21 16:20 | disposition home or self-care (01) | DRG 281 ==
LOC: EC 21:38 → 1SOBS 01-19 00:19 → 3SCARD 01-19 07:55 → OBSVTOIN 01-19 08:46
PROVIDERS: ADMIT Hospitalist; ATTEND Hospitalist
PROC: B2151ZZ Fluoroscopy of Left Heart using Low Osmolar Contrast (ICD-10-PCS; 2018-01-19)
PROC: 4A023N7 Measurement of Cardiac Sampling and Pressure, Left Heart, Percutaneous Approach (ICD-10-PCS; principal; 2018-01-19 07:00)
PROC: B2111ZZ Fluoroscopy of Multiple Coronary Arteries using Low Osmolar Contrast (ICD-10-PCS; 2018-01-19 07:00)
DX: I21.4 Non-ST elevation (NSTEMI) myocardial infarction (principal); I50.20 Unspecified systolic (congestive) heart failure; E78.5 Hyperlipidemia, unspecified; I11.0 Hypertensive heart disease with heart failure; I25.10 Atherosclerotic heart disease of native coronary artery without angina pectoris; L40.9 Psoriasis, unspecified; Z79.899 Other long term (current) drug therapy; Z82.3 Family history of stroke; Z82.49 Family history of ischemic heart disease and other diseases of the circulatory system; I25.5 Ischemic cardiomyopathy
CPT/HCPCS: 36415; 71275; 74177; 80048; 80053; 80061; 82550; 82553; 83690; 83735; 83880; 84484; 85025; 85049; 85379; 85610; 85730; 93005; 93306; 93458; 93571; 96361; 96374; 99291

== ENCOUNTER 2018-01-22 08:46 | Inpatient (IN) | payer BC ==
[2018-01-22] MEDS ORDERED: NITROGLYCERIN SL TABS 0.4 MG TAB SUBLINGUAL STA (09:18)
[2018-01-22] MEDS ORDERED: ASPIRIN 81 MG PO STA (09:18)
--- NOTE | 2018-01-22 09:31 | ED ---
Chest Pain HPI - General Chief Complaint: Chest Pain Stated Complaint: Chest pressure/ had heart attackm on thursday Time Seen by Provider: 01/22/18 09:02 Source: patient, family, RN notes reviewed, old records reviewed Mode of arrival: wheelchair - History of Present Illness Initial Comments: This is a 57-year-old male who presents with complaints of difficulty breathing chest pressure. He states he was just discharged from the hospital yesterday his been having difficulty breathing demonstrating air hunger he states the pain was pressure-like 2/10 severity left-sided chest with some left arm radiation. Some really had with his previous episodes of. He did x-ray catheter last admission he denies any fevers chills nausea vomiting sweats or other symptoms MD Complaint: chest pain - Related Data Home Medications Medication Instructions Recorded Confirmed Fexofenadine/Pseudoephedrine 1 tab PO DAILY 01/19/18 01/22/18 [Zina-D 24 Hour Tablet] Lisinopril [Zestril] 5 mg PO DAILY 01/19/18 01/22/18 Montelukast [Singulair] 10 mg PO HS 01/19/18 01/22/18 Secukinumab [Cosentyx Pen] 300 mg SQ PHILLIPS 01/19/18 01/22/18 Previous Rx's Medication Instructions Recorded Aspirin 81 mg PO DAILY #30 chew 01/21/18 Atorvastatin [Lipitor] 80 mg PO DAILY #30 tab 01/21/18 Metoprolol Tartrate [Lopressor] 25 mg PO BID #60 tab 01/21/18 Nitroglycerin Sl Tabs [Nitrostat] 0.4 mg SUBLINGUAL Q5M PRN #25 tab 01/21/18 Ticagrelor [Brilinta] 90 mg PO BID #60 tab 01/21/18 Allergies Allergy/AdvReac Type Severity Reaction Status Date / Time No Known Allergies Allergy Verified 01/22/18 10:00 Review of Systems ROS Statement: Those systems with pertinent positive or pertinent negative responses have been documented in the HPI. ROS Other: All systems not noted in ROS Statement are negative. EKG Findings - EKG Results: EKG: interpreted by MORGAN, sinus rhythm (EKG shows sinus bradycardia with occasional PVCs rate was 54. Interval 160 QRS duration 82 daily since QTC 460/ 436 minimal also criteria for LVH as compared to an EKG dated 01/18/18) Past Medical History Past Medical History: Myocardial Infarction ([place]), Skin Disorder History of Any Multi-Drug Resistant Organisms: None Reported Past Surgical History: Appendectomy, Hernia Repair Additional Past Surgical History / Comment(s): facial surgery Past Psychological History: No Psychological Hx Reported Smoking Status: Never smoker Past Alcohol Use History: Rare Past Drug Use History: None Reported - Past Family History Father Additional Family Medical History / Comment(s): STROKE Mother Additional Family Medical History / Comment(s): VASCULAR TO LOWER EXT General Exam - General Exam Comments Initial Comments: This is a well-developed well-nourished awake alert oriented 3 male General appearance: alert, anxious Head exam: Present: atraumatic, normocephalic, normal inspection Eye exam: Present: normal appearance, PERRL, EOMI. Absent: scleral icterus, conjunctival injection, periorbital swelling ENT exam: Present: normal exam, mucous membranes moist Neck exam: Present: normal inspection. Absent: tenderness, meningismus, lymphadenopathy Respiratory exam: Present: normal lung sounds bilaterally. Absent: respiratory distress, wheezes, rales, rhonchi, stridor Cardiovascular Exam: Present: regular rate, normal rhythm, normal heart sounds. Absent: systolic murmur, diastolic murmur, rubs, gallop, clicks GI/Abdominal exam: Present: soft, normal bowel sounds. Absent: distended, tenderness, guarding, rebound, rigid Extremities exam: Present: normal inspection, full ROM, normal capillary refill. Absent: tenderness, pedal edema, joint swelling, calf tenderness Back exam: Present: normal inspection Neurological exam: Present: alert, oriented X3, CN II-XII intact Psychiatric exam: Present: normal affect, normal mood Skin exam: Present: warm, dry, intact, normal color. Absent: rash Course Vital Signs 01/22/18 01/22/18 08:51 09:39 Temperature 98.1 F Pulse Rate 53 L 53 L Respiratory 18 18 Rate Blood Pressure 168/115 160/95 O2 Sat by Pulse 100 96 Oximetry - Reevaluation(s) Reevaluation #1: 01/22/18 11:54 Patient did seem to respond to nitroglycerin his pain is improved the. Dr. Polanco did come the emergency department see the patient. Chest Pain [facility] was unremarkable for acute findings. The patient does have elevation of troponin 3.0 but this is markedly improved from his previous ones. U these recurrent symptoms the history of a ruptured plaque in the LAD the patient will go to the [facility] today. Critical Care Time Critical Care Time: Yes Critical Care Time: 31 minutes of critical care time which includes initial presentation with history physical labs x-rays several reevaluation patient response to therapy discussed with cardiology discussed with the main physician admission orders and documentation the above. Disposition Clinical Impression: Unstable angina pectoris, Chest pain Disposition: ADMITTED IP TO THIS HOSP Condition: Stable Referrals: Nimo Anders III, MD [Primary Care Provider] - 1-2 days
--- NOTE | 2018-01-22 09:48 | XR ---
EXAMINATION TYPE: XR chest 2V DATE OF EXAM: 01/22/2018 COMPARISON: NONE HISTORY: Chest pain TECHNIQUE: Frontal and lateral views of the chest are obtained. FINDINGS: There is no focal air space opacity. No evidence for pneumothorax. No pleural effusion. The cardiac silhouette size is within normal limits. The osseous structures are grossly intact. IMPRESSION: 1. No acute cardiopulmonary process.
[2018-01-22 09:55] LABS: ALT 48 U/L (21-72); AST 41 U/L (17-59); Albumin 4.4 g/dL (3.5-5.0); Alkaline Phosphatase 49 U/L (38-126); Amylase 63 U/L (30-110); Anion Gap 9 mmol/L; Blood Urea Nitrogen 18 mg/dL (9-20); Calcium 9.9 mg/dL (8.4-10.2); Carbon Dioxide 23 mmol/L (22-30); Chloride 107 mmol/L (98-107); Glucose 130 mg/dL (74-99); Lipase 51 U/L (23-300); Magnesium 1.7 mg/dL (1.6-2.3); Potassium 4.5 mmol/L (3.5-5.1); Sodium 139 mmol/L (137-145); Total Bilirubin 0.9 mg/dL (0.2-1.3); Total Protein 7.5 g/dL (6.3-8.2)
[2018-01-22 10:00] LABS: D-Dimer 0.31 mg/L FEU (<0.60); INR 1.1 (<1.2); Partial Thromboplastin Time 24.6 sec (22.0-30.0); Prothrombin Time 10.3 sec (9.0-12.0)
[2018-01-22 10:11] LABS: Basophils % (A) 0 %; Eosinophils # (A) 0.1 k/uL (0-0.7); Eosinophils % (A) 1 %; HCT 49.4 % (39.0-53.0); HGB 17.5 gm/dL (13.0-17.5); Lymphocytes # (A) 1.5 k/uL (1.0-4.8); Lymphocytes % (A) 16 %; MCH 30.1 pg (25.0-35.0); MCHC 35.4 g/dL (31.0-37.0); Mean Platelet Volume 7.2; Monocytes # (A) 0.3 k/uL (0-1.0); Monocytes % (A) 4 %; Neutrophils # (A) 7.5 k/uL (1.3-7.7); Neutrophils % (A) 78 %; Platelet Count 288 k/uL (150-450); RBC 5.81 m/uL (4.30-5.90); WBC 9.6 k/uL (3.8-10.6)
[2018-01-22] MEDS ORDERED: HEPARIN SODIUM,PORCINE 5,000 UNIT/ML 1 ML VIAL IV STA (11:54)
[2018-01-22] MEDS ORDERED: NITROGLYCERIN SL TABS 0.4 MG TAB SUBLINGUAL PRN (11:56)
[2018-01-22] MEDS ORDERED: NITROGLYCERIN OINT 1 INCH/GM PACKET TOPICAL SCH (12:00)
--- NOTE | 2018-01-22 12:13 | CONS ---
CONSULTATION This patient came to the emergency room with a complaint of shortness of breath and chest discomfort. Patient was recently admitted with a non-Q-wave myocardial infarction, underwent a cardiac catheterization. 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 Patient was treated medically. Patient's left ventriculography did show evidence of apical hypokinesia. Patient was doing well since the last night. Patient is not feeling well. Patient has being fairly intermittent, having difficulty in breathing and he has to take some deep breath and this morning he started having chest tightness. Patient denies any definite nausea or vomiting. EKG done today shows a slightly evolving biphasic T-wave in V2 and V3. Please refer to the recent history and physical examination for details. Patient's medications are reviewed. PHYSICAL EXAMINATION: At present reveals patient is comfortable, not in any acute distress. The blood pressure is 130/80 mmHg. HEENT examination is negative. Chest is symmetrical. Neck is supple. There is no increase in jugular venous pressure. Both the carotid pulses are felt, there is no bruit. Chest is symmetrical. Heart, the PMI is not felt. First and second heart sounds are normal. There is no evidence of any murmur. Lungs are clinically clear to auscultation and percussion. Abdomen is soft. Liver and spleen are not enlarged. Bowel sounds are heard. Extremities, peripheral pulsations are 2+. EKG shows evolving slight biphasic T-wave in V1 and V2. IMPRESSION: This patient is having symptoms of chest tightness and shortness of breath. Patient has a recent history of non-Q-wave myocardial infarction with a ruptured plaque in the mid LAD. In view of evolving EKG changes, rule out any significant progression in the LAD stenosis. If there is a remote possibility that whether the patient's symptoms are due to the Brilinta. Patient's troponin is 3, which is a downward trend from the recent troponin of 10 recommendations in view of the recurrent chest discomfort, tightness and shortness of breath. Patient is advised a repeat cardiac catheterization for definitive diagnosis to rule out any significant progression in the LAD stenosis. Discussed with Dr. Basurto. He will proceed with today. We will anticoagulate the patient. MMODL / IJN: [id number] /
[2018-01-22] MEDS ORDERED: SODIUM CHLORIDE 0.9% 500 ML 500 ML IV ONE (12:30)
[2018-01-22] MEDS ORDERED: IV FLUID CONTINUATION 500 ML IV ONE (12:30)
[2018-01-22] MEDS ORDERED: LIDOCAINE 1% INJ 10MG/ML (20 ML MDV) ONE (12:35)
[2018-01-22] MEDS ORDERED: VERAPAMIL 2.5 MG/ML 2 ML AMP ONE (12:35)
[2018-01-22] MEDS ORDERED: HEPARIN SODIUM 1,000 UN/ML (10ML VL) ONE (12:35)
[2018-01-22] MEDS ORDERED: fentaNYL (PF) 50 MCG/ML 2 ML AMP ONE (12:36)
[2018-01-22] MEDS ORDERED: fentaNYL (PF) 50 MCG/ML 2 ML AMP IV ONE (12:52)
[2018-01-22] MEDS ORDERED: LIDOCAINE 1% INJ 10MG/ML (20 ML MDV) SQ ONE (12:56)
[2018-01-22] MEDS ORDERED: VERAPAMIL SYRINGE (5 MG/10 ML) INTRAARTER ONE (12:59)
[2018-01-22] MEDS ORDERED: HEPARIN SODIUM 1,000 UN/ML (10ML VL) IV ONE (13:08)
[2018-01-22] MEDS ORDERED: IOPAMIDOL-370 125ML BTL INJ ONE (13:12)
[2018-01-22 13:16] LABS: Creatine Kinase MB 3.4 ng/mL (0.0-2.4)
[2018-01-22] MEDS ORDERED: RX INFO: IV CONTRAST WAS GIVEN 1 EACH MISC MISCELLANE PRN (13:22)
[2018-01-22] MEDS ORDERED: SODIUM CHLORIDE 0.9% 1,000 ML IV SCH (13:30)
[2018-01-22 13:38] LABS: Troponin I 2.51 ng/mL (0.000-0.034)
--- NOTE | 2018-01-22 13:51 | ECHOF ---
Referral Reason:chest pain MEASUREMENTS -------- HEIGHT: 175.3 cm WEIGHT: 74.8 kg BP: RVIDd: 2.7 cm (< 3.3) IVSd: 1.1 cm (0.6 - 1.1) LVIDd: 4.5 cm (3.9 - 5.3) LVPWd: 1.1 cm (0.6 - 1.1) IVSs: 1.2 cm LVIDs: 4.1 cm LVPWs: 1.3 cm LAESV Index (A-L): 27.70 ml/m MV EXCURSION: 20.477 mm (> 18.000) MV EF SLOPE: 114 mm/s (70 - 150) EPSS: 1.0 cm MV E Juancho: 0.34 m/s MV DecT: 519 ms MV A Juancho: 0.30 m/s MV E/A Ratio: 1.13 RAP: 5.00 mmHg RVSP: 12.23 mmHg FINDINGS -------- Sinus rhythm. This was a technically good study. The left ventricular size is normal. There is borderline concentric left ventricular hypertrophy. Overall left ventricular systolic function is mildly impaired with, an EF between 45 - 50 %. Infer ior Hypokinesis Septal Hypokinesis The right ventricle is normal in size and function. Normal LA size by volume 22+/-6 ml/m2. The right atrium is normal in size. The aortic valve is trileaflet, and appears structurally normal. No aortic stenosis or regurgitation. The mitral valve leaflets are mildly thickened. There is trace to mild mitral regurgitation. Trace tricuspid regurgitation present. Right ventricular systolic pressure is normal at < 35 mmHg. There is no evidence of pulmonary hypertension. The pulmonic valve was not well visualized. The aortic root size is normal. Normal inferior vena cava with normal inspiratory collapse consistent with estimated right atrial pre ssure of 5 mmHg. There is no pericardial effusion. CONCLUSIONS -------- 1. Sinus rhythm. 2. This was a technically good study. 3. The left ventricular size is normal. 4. There is borderline concentric left ventricular hypertrophy. 5. Overall left ventricular systolic function is mildly impaired with, an EF between 45 - 50 %. 6. Inferior Hypokinesis 7. Septal Hypokinesis 8. Normal LA size by volume 22+/-6 ml/m2. 9. The aortic valve is trileaflet, and appears structurally normal. No aortic stenosis or regurgitati on. 10. The mitral valve leaflets are mildly thickened. 11. There is trace to mild mitral regurgitation. 12. Trace tricuspid regurgitation present. 13. Right ventricular systolic pressure is normal at < 35 mmHg. 14. There is no evidence of pulmonary hypertension. 15. The pulmonic valve was not well visualized. 16. The aortic root size is normal. 17. There is no pericardial effusion. CYBER OPS PLANNER: Salty Mcgarry RDCS
--- NOTE | 2018-01-22 15:04 | CC ---
CARDIAC CATHETERIZATION REPORT Mr. Lopes is a 57-year-old male who was just discharged from the hospital after being admitted with lzy-DL-iszvxzc-elevation myocardial infarction. At that time he had the appearance of a ruptured plaque with no significant obstructive disease. He went home and presented again to the emergency room with recurrent symptoms of chest discomfort and dyspnea. Because of that and after evaluation by Dr. Shukri Polanco, recommendation was made regarding cardiac catheterization. The procedure, its risks and complications were discussed with the patient, who was in full understanding and agreement. PROCEDURE: Patient was brought to the lab animal technologist in a fasting, semi-sedated state after receiving fentanyl and Benadryl and achieving a moderate conscious sedated state. Using Xylocaine anesthesia and Seldinger technique, a 6-St Lucian sheath was introduced in the right radial artery. Selective right and left angiography was performed using 5-St Lucian 3-1/2 Bend right and left Yeimy catheters. Multiple views were taken of the arteries, including hemiaxial views. Following that, a 5-St Lucian tight pigtail catheter was introduced in the left ventricle and a 30-degree PATEL view of the left ventricle was obtained. Following that, catheter and sheaths were removed. Hemostasis was obtained with deployment of a TR band. There was no immediate complication. Patient was returned to his room in stable condition. Of note, the patient received 3000 units of intravenous heparin as well as intra-arterial Verapamil. FINDINGS: LEFT MAIN: This is a large-sized vessel bifurcating into left circumflex, left anterior descending artery. Left main coronary artery has no evidence of high-grade stenosis. LEFT ANTERIOR DESCENDING ARTERY: This is a large-sized vessel reaching toward the apex with a wrap around the apex segment. The proximal segment has mild plaque of 20% to 30%. The area of haziness at the takeoff of the first septal identification clerk has resolved. The flow into the septal identification clerk is brisk. There is no evidence of high-grade stenosis. LEFT CIRCUMFLEX: This is a nondominant vessel giving rise to a large obtuse marginal branch. The left circumflex obtuse marginal branch has mild plaque of 20% to 30% without any evidence of high-grade stenosis. RIGHT CORONARY ARTERY: This is a large dominant vessel bifurcating into PDA, posterolateral segment and branches. The right coronary artery in the proximal segment has a 20% plaque. The rest of the vessel has no high-grade stenosis. LEFT VENTRICULOGRAM: Left ventriculogram was performed in 30-degree PATEL view and revealed apical hypokinesis. The ejection fraction was 50%. There was no significant mitral regurgitation. HEMODYNAMICS: There was no gradient across the aortic valve. The left ventricular end-diastolic pressure was 12 mmHg. CONCLUSION: 1. Mild disease in the LAD at the area of the prior haziness. The haziness and the thrombus that was noted into the septal identification clerk has almost resolved completely. 2. Minimally impaired left ventricular systolic function. RECOMMENDATIONS: In view of findings and anatomy, I have recommended continued medical therapy with the aggressive coronary risk modification that has been initiated. Those findings and recommendation were discussed with the patient and his family, who are in full understanding and agreement. Duration of procedure was 18 minutes. CHARLEY / STEPHEN: [id number] /
[2018-01-22 17:30] VITALS: BMI 24.3
[2018-01-22] MEDS: SODIUM CHLORIDE 0.9% 1,000 ML IV SCH (17:32)
[2018-01-22] MEDS: ISOSORBIDE MONONITRATE ER 30 MG TAB.ER.24H PO SCH (17:58)
[2018-01-22] MEDS: ALPRAZolam 0.25 MG TAB PO SCH (20:26)
[2018-01-22] MEDS: TICAGRELOR 90 MG TAB PO SCH (20:26)
[2018-01-22] MEDS: METOPROLOL TARTRATE 25 MG TAB PO SCH (20:26)
[2018-01-22] MEDS: MONTELUKAST 10 MG TAB PO SCH (20:26)
[2018-01-22 21:55] LABS: Creatine Kinase MB 2.2 ng/mL (0.0-2.4)
[2018-01-22 22:01] LABS: Troponin I 3.54 ng/mL (0.000-0.034)
--- NOTE | 2018-01-22 22:55 | P.HPIM ---
History of Present Illness H&P Date: 01/22/18 Chief Complaint: chest Pain Patient is a 57-year-old male with a known history of non-ST elevated [place] status post cardiac catheterization revealed 40% stenosis in the LAD suggestive of ruptured Plaque was discharged from the hospital on 01/21/2018 presented back today with complaints of difficulty breathing and chest pressure. Chest pain is mainly in the left retrosternal area. Associated with some nausea. No vomiting. No radiation. Pain is similar to his previous episode. Patient presented back to the hospital. Patient was seen by cardiology and found to have elevated troponin level. Patient was immediately taken back to cardiac catheterization. No intervention was done. Currently patient denied any complaint of chest pain or shortness of breath. EKG showed sinus bradycardia Chest x-ray no acute cardio pulmonary Process Troponin 3.0 Echocardiogram with Doppler study was performed which revealed apical hypokinesia. Review of Systems Constitutional: Patient denies any fever or chills . No generalized weakness or weight loss. Abdomen: Patient denied nausea vomiting and diarrhea and abdominal pain. Cardiovascular: Patient denies any chest pain or short of breath no palpitations. Respiratory: patient denied any cough is from production. No shortness of breath Neurologic: Patient denied any numbness or tingling headache. Musculoskeletal: Patient denies any complaints of joint swelling or deformity. Skin: Negative Psychiatric: Negative Endocrine: No heat or cold intolerance. No recent weight gain. Genitourinary: No dysuria or hematuria. All other 14 point ROS negative except the above Past Medical History Past Medical History: Myocardial Infarction ([place]), Skin Disorder History of Any Multi-Drug Resistant Organisms: None Reported Past Surgical History: Appendectomy, Hernia Repair Additional Past Surgical History / Comment(s): facial surgery Past Psychological History: No Psychological Hx Reported Smoking Status: Never smoker Past Alcohol Use History: Rare Past Drug Use History: None Reported - Past Family History Father Additional Family Medical History / Comment(s): STROKE Mother Additional Family Medical History / Comment(s): VASCULAR TO LOWER EXT Medications and Allergies Home Medications Medication Instructions Recorded Confirmed Type Fexofenadine/Pseudoephedrine 1 tab PO DAILY 01/19/18 01/22/18 History [Zina-D 24 Hour Tablet] Lisinopril [Zestril] 5 mg PO DAILY 01/19/18 01/22/18 History Montelukast [Singulair] 10 mg PO HS 01/19/18 01/22/18 History Secukinumab [Cosentyx Pen] 300 mg SQ PHILLIPS 01/19/18 01/22/18 History Aspirin 81 mg PO DAILY #30 chew 01/21/18 01/22/18 Rx Atorvastatin [Lipitor] 80 mg PO DAILY #30 tab 01/21/18 01/22/18 Rx Metoprolol Tartrate [Lopressor] 25 mg PO BID #60 tab 01/21/18 01/22/18 Rx Nitroglycerin Sl Tabs [Nitrostat] 0.4 mg SUBLINGUAL Q5M PRN #25 tab 01/21/18 Rx Ticagrelor [Brilinta] 90 mg PO BID #60 tab 01/21/18 01/22/18 Rx Allergies Allergy/AdvReac Type Severity Reaction Status Date / Time No Known Allergies Allergy Verified 01/22/18 10:00 Physical Exam Vitals: Vital Signs Temp Pulse Pulse Resp BP BP Pulse Ox 01/22/18 16:30 50 L 20 114/71 96 01/22/18 16:00 50 L 20 112/71 96 01/22/18 15:30 56 L 20 108/72 96 01/22/18 14:55 52 L 20 116/76 95 01/22/18 14:40 48 L 20 106/67 95 01/22/18 14:25 50 L 20 103/65 95 01/22/18 14:10 48 L 20 107/66 95 01/22/18 14:07 53 L 20 114/70 95 01/22/18 13:55 50 L 20 114/69 95 01/22/18 13:40 50 L 20 114/70 95 01/22/18 13:25 72 16 122/57 98 01/22/18 12:00 55 L 16 136/89 01/22/18 11:30 51 L 16 121/90 98 01/22/18 11:00 49 L 13 122/87 96 01/22/18 10:30 50 L 17 128/84 96 01/22/18 10:00 54 L 19 160/95 97 01/22/18 09:39 53 L 18 160/95 96 01/22/18 09:30 53 L 15 148/94 95 01/22/18 09:16 56 L 19 97 01/22/18 08:51 98.1 F 53 L 18 168/115 100 Intake and Output 01/22/18 01/22/18 01/22/18 06:59 14:59 22:59 Intake Total 100 Balance 100 Intake: IV 100 Other: Weight 74.843 kg PHYSICAL EXAMINATION: Patient is lying in the bed comfortably, no acute distress, awake alert and oriented.. HEENT: Normocephalic. Neck is supple. Pupils reactive. Nostrils clear. Oral cavity is moist. Ears reveal no drainage. Neck reveals no JVD, carotid bruits, or thyromegaly. CHEST EXAMINATION: Trachea is central. Symmetrical expansion. Lung lim clear to auscultation and percussion. CARDIAC: Normal S1, S2 with no gallops. No murmurs ABDOMEN: Soft. Bowel sounds normal. No organomegaly. No abdominal bruits. Extremities: reveal no edema. No clubbing or cyanosis Neurologically awake, alert, oriented x3 with well-coordinated movements. No focal deficits noted Skin: No rash or skin lesions. Psychiatric: Coperative. Nonsuicidal Musculoskeletal: No joint swelling or deformity. Normal range of motion. Results CBC & Chem 7: 01/22/18 09:19 01/22/18 09:19 Labs: Abnormal Lab Results - Last 24 Hours (Table) 01/22/18 01/22/18 01/22/18 Range/Units 09:19 09:19 12:14 Glucose 130 H (74-99) mg/dL CK-MB (CK-2) 4.0 H 3.4 H (0.0-2.4) ng/mL Troponin I 3.000 H* 2.510 H* (0.000-0.034) ng/mL Thrombosis Risk Factor Assmnt - DVT/VTE Prophylaxis DVT/VTE Prophylaxis: Pharmacologic Prophylaxis ordered Assessment and Plan Assessment: Acute non-ST elevated NV. Status post repeat cardiac catheterization Recent non-ST elevated [place] with cardiac catheterization showed possible Plaque rupture. Chest pain Sinus bradycardia DVT prophylaxis Plan: Patient was initially continued on heparin drip. Patient is currently status post cardiac catheterization. No PCI was done. Continue with aspirin, statins , metoprolol and Imdur. Cardiology is on board. Further recommendations based on the clinical course. Time with Patient: Greater than 30
[2018-01-23 07:32] LABS: Anion Gap 8 mmol/L; Blood Urea Nitrogen 15 mg/dL (9-20); Calcium 9.2 mg/dL (8.4-10.2); Carbon Dioxide 22 mmol/L (22-30); Chloride 110 mmol/L (98-107); Cholesterol 180 mg/dL (<200); Glucose 96 mg/dL (74-99); HDL Cholesterol 41 mg/dL (40-60); LDL Cholesterol,Calculated 123 mg/dL (0-99); Potassium 4.2 mmol/L (3.5-5.1); Sodium 140 mmol/L (137-145); Triglycerides 82 mg/dL (<150)
[2018-01-23] MEDS: ISOSORBIDE MONONITRATE ER 30 MG TAB.ER.24H PO SCH (08:13)
[2018-01-23] MEDS: METOPROLOL TARTRATE 25 MG TAB PO SCH (08:13)
[2018-01-23] MEDS: ATORVASTATIN 80 MG TAB PO SCH (08:13)
[2018-01-23] MEDS: ASPIRIN 81 MG PO SCH (08:13)
[2018-01-23] MEDS: TICAGRELOR 90 MG TAB PO SCH (08:13)
[2018-01-23] MEDS ORDERED: LISINOPRIL 5 MG TAB PO SCH (09:00)
[2018-01-23] MEDS ORDERED: PSEUDOEPHEDRINE PO SCH (09:00)
[2018-01-23] MEDS ORDERED: ASPIRIN 325 MG TAB PO SCH (09:00)
[2018-01-23] MEDS ORDERED: FEXOFENADINE PO SCH (09:00)
[2018-01-23] MEDS ORDERED: TEMAZEPAM 15 MG CAP PO PRN (12:38)
[2018-01-23] MEDS ORDERED: CLOPIDOGREL 75 MG TAB PO STA (15:34)
--- NOTE | 2018-01-23 15:40 | P.PN ---
Subjective This is a pleasant 57-year-old male was recently admitted with a non- ST elevated [place] and underwent cardiac catheterization. At that time it. He had a ruptured plaque with no significant obstructive disease. He was discharged home hemodynamically stable. He returned to the hospital with recurrent symptoms of chest discomfort and shortness of breath. He underwent repeat catheterization by Dr. Basurto yesterday which revealed his left main with no evidence of high-grade stenosis, LAD with a proximal mild plaque 20-30% with the area of haziness at the takeoff of the first septal coal digger had resolved , circumflex obtuse marginal branch with a mild plaque 20-30%, RCA with proximal 20% plaque. An LV gram performed at that time revealed ejection fraction 50% with apical hypokinesia. Aggressive coronary risk modification had been initiated. He is currently maintained on Dilantin 90 mg twice a day, aspirin 81 mg daily, atorvastatin 80 mg daily, Imdur 30 mg daily, lisinopril 5 mg daily and metoprolol 25 mg twice a day. Blood pressure 125/73 heart rate 51 afebrile maintaining oxygen saturation on room air. Laboratory data reviewed, sodium 140, potassium 4.2, creatinine 0.92, LDL 123, HDL 41. He continues to complain of significant shortness of breath. He states he was unable to get any sleep last night because he continues to feel short of breath and this causes significant anxiety. He denies symptoms of chest discomfort, dizziness, palpitations, PND or orthopnea. GENERAL: Well-appearing, well-nourished and in no acute distress. NECK: Supple without JVD or thyromegaly. LUNGS: Breath sounds clear to auscultation bilaterally. Respiration equal and unlabored. No wheezes, rales or rhonchi. HEART: Regular rate and rhythm without murmurs, rubs or gallops. S1 and S2 heard. EXTREMITIES: Normal range of motion, no edema. No clubbing or cyanosis. Peripheral pulses intact. Right radial artery site clean, dry and intact with no evidence of leading, ecchymosis or hematoma. ASSESSMENT Plaque rupture of the LAD from previous admission. Repeat catheterization reveals resolution of haziness in the mid LAD portion and no progression of coronary artery disease. Patient continues to feel short of breath. He has been on Proventil. Evidence of mild nonobstructive coronary artery disease Hypertension Dyslipidemia PLAN Recommend discontinuing Brilinta and starting him on Plavix. We will load him with Plavix 300 mg this evening to start 75 mg daily tomorrow. Also decrease Lopressor to 25 mg daily to see if this is causing his insomnia. His is requesting a pulmonary consultation to see if there is any other pulmonary etiology for his symptoms of shortness of breath. This is a reasonable request. We will continue to follow and make recommendations accordingly. Nurse Practitioner note has been reviewed, I agree with a documented findings and plan of care. Patient was seen and examined. Objective - Vital Signs Vital signs: Vital Signs Temp 97.8 F 01/23/18 11:41 Pulse 51 L 01/23/18 12:00 Resp 16 01/23/18 12:00 BP 125/73 01/23/18 12:00 Pulse Ox 98 01/23/18 12:00 Intake & Output 01/22/18 01/23/18 01/23/18 18:59 06:59 18:59 Intake Total 340 900 120 Balance 340 900 120 Weight 74.84 kg 73.5 kg Intake: IV 100 900 Sodium Chloride 0.9% 1, 900 000 ml @ 100 mls/hr IV . Q10H RADHA Rx#:[id number] Oral 240 120 Other: # Voids 1 - Labs CBC & Chem 7: 01/22/18 09:19 01/23/18 06:18 Labs: Abnormal Lab Results - Last 24 Hours (Table) 01/22/18 01/23/18 Range/Units 20:53 06:18 Chloride 110 H (98-107) mmol/L Total Creatine Kinase 54 L (55-170) U/L Troponin I 3.540 H* (0.000-0.034) ng/mL LDL Cholesterol, Calc 123 H (0-99) mg/dL
[2018-01-23] MEDS: SODIUM CHLORIDE 0.9% 1,000 ML IV SCH (20:05)
[2018-01-23] MEDS: ALPRAZolam 0.25 MG TAB PO SCH (20:05)
[2018-01-23] MEDS: MONTELUKAST 10 MG TAB PO SCH (21:22)
[2018-01-24 08:32] VITALS: RESP 16
[2018-01-24] MEDS: ASPIRIN 81 MG PO SCH (08:35)
[2018-01-24] MEDS: ISOSORBIDE MONONITRATE ER 30 MG TAB.ER.24H PO SCH (08:35)
[2018-01-24] MEDS: ATORVASTATIN 80 MG TAB PO SCH (08:35)
[2018-01-24] MEDS: SODIUM CHLORIDE 0.9% 1,000 ML IV SCH (08:38)
[2018-01-24] MEDS ORDERED: METOPROLOL TARTRATE 25 MG TAB PO SCH (09:00)
[2018-01-24] MEDS ORDERED: SECUKINUMAB 300 MG SQ SCH (09:00)
[2018-01-24] MEDS ORDERED: CLOPIDOGREL 75 MG TAB PO SCH (09:00)
[2018-01-24 12:02] VITALS: BP 113/69; PULSE 50; TEMP 97.7
--- NOTE | 2018-01-24 13:35 | P.CNPUL ---
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 The patient was in the hospital on 01/18/2018 for an acute chest pain. His troponins were positive. The patient was diagnosed having an acute ST segment elevation myocardial infarction. Cardiac catheterization was done and the patient was found to have with the appearance of a intracoronary thrombus in the first septal mandarin teacher branch. Mild disease in circumflex and the right coronary artery. No intervention was done. The patient was placed on a combination of aspirin and Brillinta and he was discharged home. Following his discharge, the patient became quite anxious. He was unable to go to sleep and was sleep deprived for around 24-48 hours. He was having ongoing chest pain and he was having episodes of shortness of breath with limited on a nightly. For that reason he was unable to initiate and maintain sleep. He came in to the hospital for evaluation. Troponins were downtrending. Repeat cardiac catheterization was done and there was no disease involving the LAD other than the ones seen on the previous cardiac catheterization. He was reassured. Noted the patient has no history of any lung disease. No asthma. No emphysema. No previous history of DVT and pulmonary embolism. CT angios the chest was done on 01/18/2018 was a negative study and there was no evidence of any pulmonary embolism and the lungs were essentially clear. The patient is ambulating normally for now. He was taken off the Brillints and the patient was placed on Plavix thinking the Brillinta may cause shortness of breath. Overnight he was given Restoril and he had a very good night sleep. He is completely asystolic at this point in time. He has history of chronic and vomiting just for which she takes Singulair. He is a nonsmoker. His current medications include a combination of aspirin and Plavix. Is on Lipitor high-dose and is also on Lopressor 25 mg by mouth once a day. No other complaints otherwise for now. No signs of any obstructive sleep apnea. Review of Systems Constitutional: Denies chills, Denies fever Eyes: denies as per HPI, denies blurred vision, denies bulging eye, denies decreased vision, denies diplopia, denies discharge, denies dry eye, denies irritation, denies itching, denies pain, denies photophobia, denies loss of peripheral vision, denies loss of vision, denies tunnel vision/blind spots Ears: deny: decreased hearing, ear discharge, earache, tinnitus Ears, nose, mouth and throat: Denies headache, Denies sore throat Cardiovascular: Reports chest pain, Reports shortness of breath Respiratory: Reports dyspnea Gastrointestinal: Denies abdominal pain, Denies diarrhea, Denies nausea, Denies vomiting Genitourinary: Reports as per HPI Musculoskeletal: Reports as per HPI Musculoskeletal: absent: ankle pain, ankle stiffness, ankle swelling, as per HPI , elbow pain, elbow stiffness, elbow swelling, foot pain, foot stiffness, foot swelling, hand pain, hand stiffness, hand swelling, hip pain, hip stiffness, hip swelling, knee pain, knee stiffness, knee swelling, shoulder pain, shoulder stiffness, shoulder swelling, wrist pain, wrist stiffness, wrist swelling Integumentary: Denies pruritus, Denies rash Neurological: Reports as per HPI Psychiatric: Reports as per HPI Endocrine: Reports as per HPI Hematologic/Lymphatic: Reports as per HPI Allergic/Immunologic: Reports as per HPI Past Medical History Past Medical History: Myocardial Infarction ([place]), Skin Disorder Last Myocardial Infarction Date:: 01/20/18 History of Any Multi-Drug Resistant Organisms: None Reported Past Surgical History: Appendectomy, Hernia Repair Additional Past Surgical History / Comment(s): facial surgery Past Anesthesia/Blood Transfusion Reactions: No Reported Reaction Past Psychological History: No Psychological Hx Reported Smoking Status: Never smoker Past Alcohol Use History: Rare Past Drug Use History: None Reported - Past Family History Father Additional Family Medical History / Comment(s): STROKE Mother Additional Family Medical History / Comment(s): VASCULAR TO LOWER EXT Medications and Allergies Home Medications Medication Instructions Recorded Confirmed Type Fexofenadine/Pseudoephedrine 1 tab PO DAILY 01/19/18 01/22/18 History [Zina-D 24 Hour Tablet] Lisinopril [Zestril] 5 mg PO DAILY 01/19/18 01/22/18 History Montelukast [Singulair] 10 mg PO HS 01/19/18 01/22/18 History Secukinumab [Cosentyx Pen] 300 mg SQ PHILLIPS 01/19/18 01/22/18 History Aspirin 81 mg PO DAILY #30 chew 01/21/18 01/22/18 Rx Atorvastatin [Lipitor] 80 mg PO DAILY #30 tab 01/21/18 01/22/18 Rx Metoprolol Tartrate [Lopressor] 25 mg PO BID #60 tab 01/21/18 01/22/18 Rx Nitroglycerin Sl Tabs [Nitrostat] 0.4 mg SUBLINGUAL Q5M PRN #25 tab 01/21/18 Rx Clopidogrel [Plavix] 75 mg PO DAILY #30 tab 01/24/18 Rx Isosorbide Mononitrate ER [Imdur] 30 mg PO DAILY #30 tab.er.24h 01/24/18 Rx Temazepam [Restoril] 15 mg PO HS PRN 3 Days #3 cap 01/24/18 Rx Allergies Allergy/AdvReac Type Severity Reaction Status Date / Time No Known Allergies Allergy Verified 01/22/18 10:00 Physical Exam Vitals: Vital Signs Temp Pulse Pulse Resp BP BP Pulse Ox 01/24/18 12:00 97.7 F 50 L 16 113/69 99 01/24/18 08:30 97.5 F L 57 L 16 114/69 97 01/24/18 04:00 62 18 124/76 96 01/24/18 00:00 52 L 52 L 16 95/55 98 01/23/18 20:00 97.5 F L 58 L 58 L 18 123/70 98 01/23/18 16:00 16 01/23/18 15:47 97.6 F 54 L 16 113/70 97 Intake and Output 01/23/18 01/24/18 01/24/18 22:59 06:59 14:59 Intake Total 120 Balance 120 Intake: Oral 120 Other: # Voids 1 0 1 Weight 73.1 kg The patient appeared well nourished and normally developed. Vital signs as documented. Head exam is unremarkable. No scleral icterus or corneal arcus noted. Neck is without jugular venous distension, thyromegaly, or carotid bruits. Carotid upstrokes are brisk bilaterally. Lungs are clear to auscultation and percussion. Cardiac exam reveals the PMI to be normally sized and situated. Rhythm is regular. First and second heart sounds normal. No murmurs, rubs or gallops. Abdominal exam reveals normal bowel sounds, no masses , no organomegaly and no aortic enlargement. Extremities are nonedematous and both femoral and pedal pulses are normal. My normal skin neurologically the patient awake and alert and is no focal logical deficits. Psychiatrically, there is a mild component of anxiety Results - Laboratory Findings CBC and BMP: 01/22/18 09:19 01/23/18 06:18 PT/INR, D-dimer PT 10.3 sec (9.0-12.0) 01/22/18 09:19 INR 1.1 (<1.2) 01/22/18 09:19 D-Dimer 0.31 mg/L FEU (<0.60) 01/22/18 09:19 Abnormal lab findings: Abnormal Labs 01/22/18 01/22/18 01/22/18 09:19 09:19 12:14 Chloride Glucose 130 H Total Creatine Kinase CK-MB (CK-2) 4.0 H 3.4 H Troponin I 3.000 H* 2.510 H* LDL Cholesterol, Calc 01/22/18 01/23/18 20:53 06:18 Chloride 110 H Glucose Total Creatine Kinase 54 L CK-MB (CK-2) Troponin I 3.540 H* LDL Cholesterol, Calc 123 H - Diagnostic Findings Chest x-ray: image reviewed Assessment and Plan Plan: Assessment 1 acute non-STEMI, likely secondary to plaque rupture of the LAD and a previous admission of 01/18/2018, post cardiac catheterization and initiation of medical treatment. No coronary intervention and stenting was done. 2 recurrent chest pain shortness of breath, either drug-induced or anxiety related. Repeat cardiac catheterization was essentially within normal limits. [address] angios the chest that was done. 4 hypertension 5 hyperlipidemia Plan The patient likely is anxious following his coronary intervention and following his recent non-STEMI. He is having difficulties with insomnia which is of an acute onset along with some degree of anxiety. Cardiology also evaluated this patient and they thought Brilinta may be affecting the patient's breathing and the patient was taken off the medication was replaced with Plavix. Currently is ambulating. Oxygen is taking normally. No complaints for now. I do not see any active pulmonary issues. His lung exam is clear. We'll given Restoril 50 mg to be taken over the next few days to initiate and maintain sleep. Follow with cardiology. Continue same cardiac medications. No issues from my standpoint and the patient can be discharged from the pulmonary standpoint. No need for any further workup at this point in time.
--- NOTE | 2018-01-24 14:55 | P.PN ---
Subjective Progress Note Date: 01/24/18 This is a 57-year-old male with history of acute coronary syndrome who underwent cardiac catheterization. He was found to have clot in the septal branch with moderate disease in the LAD. Yesterday patient was complaining of shortness of breath and insomnia. It was felt to be length of may be causing shortness of breath. The [place] that was stopped and patient was switched to Plavix. He was also given a sleeping medication and slept well last night. He is feeling much better today. He is not having shortness of breath. He is also seen by etl programmer. He didn't feel that he is any further need for workup for any pulmonary issues at this time. Lungs are clear. Heart is regular. Patient could be discharged home. Follow-up by Dr. Basurto Objective - Vital Signs Vital signs: Vital Signs Temp 97.7 F 01/24/18 12:00 Pulse 50 L 01/24/18 12:00 Resp 16 01/24/18 12:00 BP 113/69 01/24/18 12:00 Pulse Ox 99 01/24/18 12:00 Intake & Output 01/23/18 01/24/18 01/24/18 18:59 06:59 18:59 Intake Total 240 480 Balance 240 480 Weight 73.1 kg Intake: Intake, IV Titration 0 Amount Sodium Chloride 0.9% 500 0 ml 500 ml @ 0 mls/hr IV . ClearDATA ONE Rx#: [id number] Oral 240 480 Other: # Voids 1 0 2 - Exam GENERAL EXAM: Patient is alert and oriented and doesn't appear to be in any acute distress HEENT: Normocephalic. Normal reaction of pupils, equal size, normal range of extraocular motion. No erythema or exudates in the throat. NECK: No masses, no nuchal rigidity. CHEST: No chest wall deformity. LUNGS: Equal air entry with no crackles or wheeze. HEART: S1 and S2 normal with no audible mumurs or gallops. Regular rhythm, femorals equal on both sides.. ABDOMEN: No hepatosplenomegaly, normal bowel sounds, no guarding or rigidity. SKIN: No rashes CENTRAL NERVOUS SYSTEM: No focal deficits. EXTREMITIES: No cyanosis, clubbing or edema. - Labs CBC & Chem 7: 01/22/18 09:19 01/23/18 06:18 Assessment and Plan (1) Dyspnea Current Visit: Yes Status: Acute Code(s): R06.00 - DYSPNEA, UNSPECIFIED SNOMED Code(s): 574962307 (2) NSTEMI (non-ST elevated myocardial infarction) Current Visit: No Status: Acute Code(s): I21.4 - NON-ST ELEVATION (NSTEMI) MYOCARDIAL INFARCTION SNOMED Code(s): 769125437 Plan: Patient is feeling much better today. He slept well last night. He is switching from Joanie and Dr. Weiner. His metoprolol dose is cut back to 25 mg once in the morning. Rest of the medication to be continued. Patient could be discharged home. Follow-up with Dr. Basurto.
== END 2018-01-24 14:55 | disposition home or self-care (01) | DRG 282 ==
LOC: EC 08:46 → 3SCARD 11:56
PROVIDERS: ADMIT Internal Medicine; ATTEND Internal Medicine
PROC: B2111ZZ Fluoroscopy of Multiple Coronary Arteries using Low Osmolar Contrast (ICD-10-PCS; 2018-01-22)
PROC: B2151ZZ Fluoroscopy of Left Heart using Low Osmolar Contrast (ICD-10-PCS; 2018-01-22)
PROC: 4A023N7 Measurement of Cardiac Sampling and Pressure, Left Heart, Percutaneous Approach (ICD-10-PCS; principal; 2018-01-22 12:29)
DX: I22.2 Subsequent non-ST elevation (NSTEMI) myocardial infarction (principal); I21.4 Non-ST elevation (NSTEMI) myocardial infarction; E78.5 Hyperlipidemia, unspecified; F41.9 Anxiety disorder, unspecified; G47.00 Insomnia, unspecified; I10 Essential (primary) hypertension; I25.110 Atherosclerotic heart disease of native coronary artery with unstable angina pectoris; I25.10 Atherosclerotic heart disease of native coronary artery without angina pectoris; Z79.02 Long term (current) use of antithrombotics/antiplatelets; Z79.82 Long term (current) use of aspirin; Z79.899 Other long term (current) drug therapy; Z82.3 Family history of stroke; Z86.79 Personal history of other diseases of the circulatory system; R00.1 Bradycardia, unspecified
CPT/HCPCS: 36415; 71046; 80048; 80053; 80061; 82150; 82550; 82553; 83690; 83735; 84484; 85025; 85379; 85610; 85730; 93306; 93458

== ENCOUNTER 2019-11-14 12:56 | Observation (INO) | payer BC ==
[2019-11-14] MEDS ORDERED: SODIUM CHLORIDE 0.9% 1,000 ML IV STA (13:17)
--- NOTE | 2019-11-14 13:23 | ED ---
General Adult HPI - General Chief complaint: Dizziness Stated complaint: Hypotensive, headache, heart pt Time Seen by Provider: 11/14/19 13:12 Source: patient, family, RN notes reviewed Mode of arrival: ambulatory Limitations: no limitations - History of Present Illness Initial comments: Patient is a pleasant 59-year-old male presenting to the emergency department with lightheadedness. Onset of symptoms was while playing pickle ball earlier today. Patient went home and still had some symptoms. Patient complains of feeling lightheaded. Patient states he did have a medium headache. Patient states he does sometimes headaches similar to this. Patient states sometimes it is related with his medications. Patient did have heart problems one year ago however symptoms were not similar to this. Patient denies any chest discomfort or dyspnea. No isolated area of weakness. No confusion. Patient states he did take his blood pressure home and was 91. Patient states symptoms are somewhat improved. - Related Data Home Medications Medication Instructions Recorded Confirmed Fexofenadine/Pseudoephedrine 1 tab PO DAILY 01/19/18 01/22/18 [Zina-D 24 Hour Tablet] Montelukast [Singulair] 10 mg PO HS 01/19/18 01/22/18 Secukinumab [Cosentyx Pen] 300 mg SQ PHILLIPS 01/19/18 01/22/18 lisinopriL [Zestril] 5 mg PO DAILY 01/19/18 01/22/18 Previous Rx's Medication Instructions Recorded Aspirin 81 mg PO DAILY #30 chew 01/21/18 Atorvastatin [Lipitor] 80 mg PO DAILY #30 tab 01/21/18 Nitroglycerin Sl Tabs [Nitrostat] 0.4 mg SUBLINGUAL Q5M PRN #25 tab 01/21/18 Clopidogrel [Plavix] 75 mg PO DAILY #30 tab 01/24/18 Isosorbide Mononitrate ER [Imdur] 30 mg PO DAILY #30 tab.er.24h 01/24/18 Metoprolol Tartrate [Lopressor] 25 mg PO DAILY tab 01/24/18 Temazepam [Restoril] 15 mg PO HS PRN 3 Days #3 cap 01/24/18 Allergies Allergy/AdvReac Type Severity Reaction Status Date / Time No Known Allergies Allergy Verified 11/14/19 13:04 Review of Systems ROS Statement: Those systems with pertinent positive or pertinent negative responses have been documented in the HPI. ROS Other: All systems not noted in ROS Statement are negative. Constitutional: Denies: fever Eyes: Denies: eye pain ENT: Denies: ear pain Respiratory: Denies: cough, dyspnea Cardiovascular: Denies: chest pain Endocrine: Reports: fatigue Gastrointestinal: Denies: abdominal pain Genitourinary: Denies: dysuria Musculoskeletal: Denies: back pain Skin: Denies: rash Neurological: Reports: as per HPI, headache. Denies: confusion, abnormal gait, vertigo Past Medical History Past Medical History: Hyperlipidemia, Hypertension, Myocardial Infarction ([place]), Skin Disorder Last Myocardial Infarction Date:: 01/20/18 History of Any Multi-Drug Resistant Organisms: None Reported Past Surgical History: Appendectomy, Heart Catheterization, Hernia Repair Additional Past Surgical History / Comment(s): facial surgery Past Anesthesia/Blood Transfusion Reactions: No Reported Reaction Past Psychological History: No Psychological Hx Reported Smoking Status: Never smoker Past Alcohol Use History: Occasional Past Drug Use History: None Reported - Past Family History Father Additional Family Medical History / Comment(s): STROKE Mother Additional Family Medical History / Comment(s): VASCULAR TO LOWER EXT General Exam Limitations: no limitations General appearance: alert, in no apparent distress Head exam: Present: normocephalic Eye exam: Present: normal appearance, PERRL, EOMI. Absent: nystagmus ENT exam: Present: normal oropharynx Neck exam: Present: normal inspection Respiratory exam: Present: normal lung sounds bilaterally Cardiovascular Exam: Present: regular rate, normal rhythm Expanded Peripheral pulses: 2+: Radial (R), Radial (L), Posterior Tibialis (R), Posterior Tibialis (L), Dorsalis Pedis (R), Dorsalis Pedis (L) GI/Abdominal exam: Present: soft. Absent: tenderness Extremities exam: Present: normal inspection. Absent: pedal edema, calf tenderness Neurological exam: Present: alert, oriented X3, CN II-XII intact. Absent: motor sensory deficit Expanded Neurological exam: Present: protecting the airway Speech: Present: fluid speech Cranial nerves: EOM's Intact: Normal Cerebellar function: Finger to Nose: Normal Motor strength exam: RUE: 5, LUE: 5, RLE: 5, LLE: 5 Eye Response: (4) open spontaneously Motor Response: (6) obeys commands Verbal Response: (5) oriented Psychiatric exam: Present: normal affect, normal mood Skin exam: Present: normal color Course Vital Signs 11/14/19 11/14/19 11/14/19 13:00 13:29 14:34 Temperature 98.3 F Pulse Rate 59 L 64 Pulse Rate [ 67 Sitting] Pulse Rate [ 67 Standing] Pulse Rate [ 64 Supine] Respiratory 18 16 18 Rate Blood Pressure 113/71 99/63 Blood Pressure 116/83 [Sitting] Blood Pressure 105/74 [Standing] Blood Pressure 110/65 [Supine] O2 Sat by Pulse 98 98 95 Oximetry EKG Findings - EKG Comments: EKG Findings:: Normal sinus rhythm 62. GA 166. QRS 88. QT 422. QTC 428. Normal axis. Normal QRS. No acute ST change. Nonspecific T waves. Medical Decision Making - Medical Decision Making Patient reevaluated and resting comfortably in bed. Secondary to subtle EKG changes case was discussed with Dr. Hendrickson, who will admit covering for Dr. Anders. Cardiology will also be placed on consult. - Lab Data Result diagrams: 11/14/19 13:28 11/14/19 13:28 Lab Results 11/14/19 11/14/19 11/14/19 Range/Units 13:28 13:28 13:28 WBC 14.4 H (3.8-10.6) k/uL RBC 5.20 (4.30-5.90) m/uL Hgb 15.6 (13.0-17.5) gm/dL Hct 45.6 (39.0-53.0) % MCV 87.7 (80.0-100.0) fL MCH 30.1 (25.0-35.0) pg MCHC 34.3 (31.0-37.0) g/dL RDW 12.2 (11.5-15.5) % Plt Count 215 (150-450) k/uL Neutrophils % 89 % Lymphocytes % 5 % Monocytes % 4 % Eosinophils % 0 % Basophils % 0 % Neutrophils # 12.9 H (1.3-7.7) k/uL Lymphocytes # 0.8 L (1.0-4.8) k/uL Monocytes # 0.6 (0-1.0) k/uL Eosinophils # 0.0 (0-0.7) k/uL Basophils # 0.0 (0-0.2) k/uL PT 10.5 (9.0-12.0) sec INR 1.0 (<1.2) APTT 20.8 L (22.0-30.0) sec Sodium (137-145) mmol/L Potassium (3.5-5.1) mmol/L Chloride (98-107) mmol/L Carbon Dioxide (22-30) mmol/L Anion Gap mmol/L BUN (9-20) mg/dL Creatinine (0.66-1.25) mg/dL Est GFR (CKD-EPI)AfAm (>60 ml/min/1.73 sqM) Est GFR (CKD-EPI)NonAf (>60 ml/min/1.73 sqM) Glucose (74-99) mg/dL Plasma Lactic Acid Dimitri (0.7-2.0) mmol/L Calcium (8.4-10.2) mg/dL Magnesium (1.6-2.3) mg/dL Total Bilirubin (0.2-1.3) mg/dL AST (17-59) U/L ALT (4-49) U/L Alkaline Phosphatase (38-126) U/L Troponin I (0.000-0.034) ng/mL Total Protein (6.3-8.2) g/dL Albumin (3.5-5.0) g/dL Urine Color Yellow Urine Appearance Cloudy (Clear) Urine pH 5.5 (5.0-8.0) Ur Specific [place] 1.026 (1.001-1.035) Urine Protein 1+ H (Negative) Urine Glucose (UA) Negative (Negative) Urine Ketones Negative (Negative) Urine Blood Negative (Negative) Urine Nitrite Negative (Negative) Urine Bilirubin Negative (Negative) Urine Urobilinogen 2.0 (<2.0) mg/dL Ur Leukocyte Esterase Negative (Negative) Urine RBC 2 (0-5) /hpf Urine WBC 4 (0-5) /hpf Ur Squamous Epith Cells 1 (0-4) /hpf Calcium Oxalate Crystal Few H (None) /hpf Hyaline Casts 160 H (0-2) /lpf Granular Casts 4 (0) /lpf Urine Mucus Many H (None) /hpf 11/14/19 11/14/19 11/14/19 Range/Units 13:28 13:28 13:28 WBC (3.8-10.6) k/uL RBC (4.30-5.90) m/uL Hgb (13.0-17.5) gm/dL Hct (39.0-53.0) % MCV (80.0-100.0) fL MCH (25.0-35.0) pg MCHC (31.0-37.0) g/dL RDW (11.5-15.5) % Plt Count (150-450) k/uL Neutrophils % % Lymphocytes % % Monocytes % % Eosinophils % % Basophils % % Neutrophils # (1.3-7.7) k/uL Lymphocytes # (1.0-4.8) k/uL Monocytes # (0-1.0) k/uL Eosinophils # (0-0.7) k/uL Basophils # (0-0.2) k/uL PT (9.0-12.0) sec INR (<1.2) APTT (22.0-30.0) sec Sodium 138 (137-145) mmol/L Potassium 4.6 (3.5-5.1) mmol/L Chloride 107 (98-107) mmol/L Carbon Dioxide 21 L (22-30) mmol/L Anion Gap 10 mmol/L BUN 22 H (9-20) mg/dL Creatinine 1.11 (0.66-1.25) mg/dL Est GFR (CKD-EPI)AfAm 85 (>60 ml/min/1.73 sqM) Est GFR (CKD-EPI)NonAf 74 (>60 ml/min/1.73 sqM) Glucose 102 H (74-99) mg/dL Plasma Lactic Acid Dimitri 1.3 (0.7-2.0) mmol/L Calcium 9.7 (8.4-10.2) mg/dL Magnesium 1.7 (1.6-2.3) mg/dL Total Bilirubin 0.9 (0.2-1.3) mg/dL AST 33 (17-59) U/L ALT 35 (4-49) U/L Alkaline Phosphatase 48 (38-126) U/L Troponin I <0.012 (0.000-0.034) ng/mL Total Protein 6.9 (6.3-8.2) g/dL Albumin 4.5 (3.5-5.0) g/dL Urine Color Urine Appearance (Clear) Urine pH (5.0-8.0) Ur Specific [place] (1.001-1.035) Urine Protein (Negative) Urine Glucose (UA) (Negative) Urine Ketones (Negative) Urine Blood (Negative) Urine Nitrite (Negative) Urine Bilirubin (Negative) Urine Urobilinogen (<2.0) mg/dL Ur Leukocyte Esterase (Negative) Urine RBC (0-5) /hpf Urine WBC (0-5) /hpf Ur Squamous Epith Cells (0-4) /hpf Calcium Oxalate Crystal (None) /hpf Hyaline Casts (0-2) /lpf Granular Casts (0) /lpf Urine Mucus (None) /hpf - Radiology Data Radiology results: report reviewed (Computed tomography scan the brain shows no acute intercranial abnormality.), image reviewed (Chest x-ray shows no acute process) Disposition Clinical Impression: Dehydration, T wave inversion in EKG Disposition: ADMITTED IP TO THIS HOSP Is patient prescribed a controlled substance at d/c from ED?: No Referrals: Nimo Anders III, MD [Primary Care Provider] - 1-2 days Decision Time: 14:39
[2019-11-14 13:51] LABS: Basophils % (A) 0 %; Eosinophils % (A) 0 %; HCT 45.6 % (39.0-53.0); HGB 15.6 gm/dL (13.0-17.5); Lymphocytes # (A) 0.8 k/uL (1.0-4.8); Lymphocytes % (A) 5 %; MCH 30.1 pg (25.0-35.0); MCHC 34.3 g/dL (31.0-37.0); MCV 87.7 fL (80.0-100.0); Monocytes # (A) 0.6 k/uL (0-1.0); Monocytes % (A) 4 %; Neutrophils # (A) 12.9 k/uL (1.3-7.7); Neutrophils % (A) 89 %; Platelet Count 215 k/uL (150-450); RDW 12.2 % (11.5-15.5); WBC 14.4 k/uL (3.8-10.6)
--- NOTE | 2019-11-14 13:57 | CT ---
EXAMINATION TYPE: CT brain wo con DATE OF EXAM: 11/14/2019 COMPARISON: None HISTORY: 59-year-old male with weakness, Lightheaded, dizzy, hypotensive TECHNIQUE: Examination was done in axial plane without intravenous contrast. Coronal and sagittal r econstructions performed. CT DLP: 1062.4 mGycm Automated exposure control for dose reduction was used. FINDINGS: There is no evidence of acute intracranial hemorrhage, acute ischemic changes, mass, mass-effect, or extra-axial fluid collection. There is no effacement of cerebral sulci or basal subarachnoid cister ns. There is no hydrocephalus. There is no midline shift. Dia-white matter distinction is preserv ed. Trace mucosal thickening ethmoid air cells. Mastoid air cells are pneumatized. Orbits and globes are intact. IMPRESSION: No acute intracranial abnormality seen.
[2019-11-14 13:59] LABS: Appearance,Urine Cloudy (Clear); Bilirubin,Urine Negative (Negative); Blood,Urine Negative (Negative); Calcium Oxalate Crystals,Urine Few /hpf; Color,Urine Yellow; Glucose,Urine (UA) Negative (Negative); Granular Casts,Urine 4 /lpf (0); Hyaline Casts,Urine 160 /lpf (0-2); Ketones,Urine Negative (Negative); Leukocyte Esterase,Urine Negative (Negative); Mucus,Urine Many /hpf; Nitrite,Urine Negative (Negative); PH, Urine 5.5 (5.0-8.0); Protein,Urine 1+ (Negative); RBC,Urine 2 /hpf (0-5); Specific Gravity,Urine 1.026 (1.001-1.035); Squamous Epithelial Cell,Urine 1 /hpf (0-4); WBC,Urine 4 /hpf (0-5)
--- NOTE | 2019-11-14 14:01 | XR ---
EXAMINATION TYPE: XR chest 2V DATE OF EXAM: 11/14/2019 COMPARISON: 01/22/2018 HISTORY: 59-year-old male with weakness TECHNIQUE: PA and lateral views FINDINGS: The cardiomediastinal silhouette, aorta, and pulmonary vasculature are within normal limits. Lungs an d pleural spaces are clear. IMPRESSION: No acute cardiopulmonary process.
[2019-11-14 14:04] LABS: Albumin 4.5 g/dL (3.5-5.0); Calcium 9.7 mg/dL (8.4-10.2); Magnesium 1.7 mg/dL (1.6-2.3); Potassium 4.6 mmol/L (3.5-5.1); Total Bilirubin 0.9 mg/dL (0.2-1.3); Total Protein 6.9 g/dL (6.3-8.2)
[2019-11-14 14:10] LABS: Prothrombin Time 10.5 sec (9.0-12.0)
[2019-11-14 14:17] LABS: Partial Thromboplastin Time 20.8 sec (22.0-30.0)
[2019-11-14] MEDS ORDERED: ASPIRIN 81 MG PO STA (14:39)
[2019-11-14] MEDS ORDERED: NITROGLYCERIN SL TABS 0.4 MG TAB SUBLINGUAL PRN (14:39)
[2019-11-14] MEDS: SODIUM CHLORIDE 0.9% 1,000 ML IV SCH (15:05)
[2019-11-14] MEDS ORDERED: FLUTICASONE 50MCG/SPRAY NASAL 16GM EA NOSTRIL PRN (18:28)
[2019-11-14] MEDS: APREMILAST 30 MG PO SCH (20:23)
[2019-11-14] MEDS ORDERED: MONTELUKAST 10 MG TAB PO SCH (21:00)
--- NOTE | 2019-11-15 02:39 | HP ---
HISTORY AND PHYSICAL DATE OF SERVICE: 11/14/2019 CHIEF COMPLAINT: Dizziness. HISTORY OF PRESENT ILLNESS: This 59-year-old gentleman with a past medical history of history of hypertension. history of hyperlipidemia, myocardial infarction without intervention, being followed by Dr. Anders in the outpatient setting was playing pickle ball. The patient apparently felt dizzy and the patient was feeling lightheaded. Subsequently the patient also has headache also. Patient went home and the patient is not feeling all right. Patient is also complaining of low blood pressure. Patient came to [facility] and was admitted for further evaluation and treatment. The initial labs showed WBC 14.4 and glucose 102. UA showed some hyaline casts and an EKG done in the ER shows some T inversions especially in the inferior leads and the inferolateral leads and the patient admitted for further evaluation and treatment. There is no history of any fever or rigors. No history of headache, loss of consciousness or seizures at this time. PAST MEDICAL HISTORY: Hypertension, hyperlipidemia, myocardial infarction, history of appendectomy, cardiac catheterization. MEDICATIONS: 1. Flonase. 2. Otezla. 3. Zestril. 4. Singulair. 5. Toprol XL. 6. Imdur. 7. Lipitor. 8. Aspirin. 9. Zina D 24 hours. ALLERGIES: None. FAMILY HISTORY: History of CVA, TIA, strokes. SOCIAL HISTORY: No history of smoking. Occasional alcohol intake. REVIEW OF SYSTEMS: ENT: No diminished hearing or diminished vision, otherwise mentioned earlier. CARDIOVASCULAR SYSTEM: As mentioned earlier. RESPIRATORY SYSTEM: No cough or hemoptysis. GI: No nausea. : No dysuria. NERVOUS SYSTEM: No numbness or weakness. ALLERGY/IMMUNOLOGY: No asthma or hayfever. MUSCULOSKELETAL: As mentioned earlier. HEMATOLOGY/ONCOLOGY: No history of anemia. ENDOCRINE: No history of diabetes or hypothyroidism. CONSTITUTIONAL: As mentioned earlier. DERMATOLOGY: Negative. RHEUMATOLOGY: Negative. PSYCHIATRY: As mentioned earlier. PHYSICAL EXAMINATION: The patient is alert and oriented x3. Pulse 54, blood pressure 112/66, respirations 16, temperature 97.9. Minimal orthostatic changes. Pulse ox 95% on room air. HEENT: Conjunctivae normal. Oral mucosa moist. NECK: No jugular venous distention. No carotid bruit. No lymph node enlargement. CARDIOVASCULAR: S1, S2 muffled. RESPIRATORY: Breath sounds diminished at the bases. No rhonchi. No crackles. ABDOMEN: Soft, nontender. No mass palpable. LEGS: No edema, no swelling. NERVOUS SYSTEM: Higher functions as mentioned earlier. Moves all 4 limbs. No focal deficits. LYMPHATICS: No lymphadenopathy of the neck, axillae or groin. SKIN: No ulcer, rash or bleeding. JOINTS: No active deforming arthropathy. LABS: WBC 14.4. INR is 1. CO2 is 21. BUN is 22. ASSESSMENT: 1. Dizziness and weakness for evaluation, rule out orthostatic hypotension. 2. Rule out coronary artery disease. 3. Increased WBC, possibly reactive in nature. 4. Hypertension. 5. Hyperlipidemia. 6. Myocardial infarction. 7. History of appendectomy. 8. History of cardiac catheterization. RECOMMENDATIONS AND DISCUSSION: This 59-year-old gentleman who presented with multiple medical issues, at this time I recommend to continue the current medications, continue symptomatic treatment. Otherwise at this time I recommend rule out myocardial infarction, unstable angina protocol. Resume the home medications. Hold off the blood pressure medications and cardiology consultation possible stress test. Guarded prognosis because of multiple complex medical conditions. Further recommendations to follow. A copy of dictation forwarded to Dr. Anders who is the primary physician. MMODL / IJN: [id number] /
[2019-11-15] MEDS: SODIUM CHLORIDE 0.9% 1,000 ML IV SCH (05:11)
[2019-11-15 06:35] LABS: Basophils % (A) 0 %; Eosinophils # (A) 0.1 k/uL (0-0.7); Eosinophils % (A) 2 %; HCT 43.6 % (39.0-53.0); HGB 14.2 gm/dL (13.0-17.5); Lymphocytes # (A) 1.4 k/uL (1.0-4.8); Lymphocytes % (A) 22 %; MCH 29.4 pg (25.0-35.0); MCHC 32.7 g/dL (31.0-37.0); MCV 89.9 fL (80.0-100.0); Mean Platelet Volume 7.5; Monocytes # (A) 0.4 k/uL (0-1.0); Monocytes % (A) 7 %; Neutrophils # (A) 4.3 k/uL (1.3-7.7); Neutrophils % (A) 67 %; Platelet Count 149 k/uL (150-450); RBC 4.84 m/uL (4.30-5.90); RDW 12.4 % (11.5-15.5); WBC 6.4 k/uL (3.8-10.6)
[2019-11-15 06:47] LABS: African American GFR (CKD) >90 (>60 ml/min/1.73 sqM); Anion Gap 5 mmol/L; Blood Urea Nitrogen 19 mg/dL (9-20); Calcium 8.6 mg/dL (8.4-10.2); Carbon Dioxide 26 mmol/L (22-30); Chloride 108 mmol/L (98-107); Cholesterol 103 mg/dL (<200); Glucose 90 mg/dL (74-99); HDL Cholesterol 46 mg/dL (40-60); LDL Cholesterol,Calculated 46 mg/dL (0-99); Non-African American GFR(CKD) 88 (>60 ml/min/1.73 sqM); Potassium 4.7 mmol/L (3.5-5.1); Sodium 139 mmol/L (137-145); Triglycerides 57 mg/dL (<150)
[2019-11-15 08:50] VITALS: BP 143/80; PULSE 63; RESP 16; TEMP 97.8
[2019-11-15] MEDS ORDERED: ASPIRIN 81 MG PO SCH (09:00)
[2019-11-15] MEDS ORDERED: LORATADINE-PSEUDOEPH 5-120 MG 1 EACH TAB.ER.12H PO SCH (09:00)
[2019-11-15] MEDS ORDERED: ASPIRIN 325 MG TAB PO SCH (09:00)
[2019-11-15] MEDS ORDERED: ATORVASTATIN 80 MG TAB PO SCH (09:00)
[2019-11-15] MEDS: APREMILAST 30 MG PO SCH (09:22)
--- NOTE | 2019-11-15 09:36 | P.CRDCN ---
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 He follows in the office with Dr. Basurto. We have been asked to see in consultation for cardiac evaluation. He states he woke up yesterday morning feeling generally weak and fatigued. He went about his day playing pickle ball for approximately 2 hours throughout the whole time he was playing he felt tired his legs felt weak and he just didn't feel like himself. He never described any symptoms of chest discomfort or shortness of breath. After finishing pickle ball he went home and checked his blood pressure which came to be low in the 90s systolic. He ate something and repeated his blood pressure. Over the course of 90 minutes his blood pressure remained in the 90s systolic. On arrival to the emergency department blood pressure was 113/71 with a heart rate of 59. Orthostatic vital signs have been obtained and were unremarkable x3. He is seen and examined sitting up in no acute distress. He denies ever having had any symptoms of chest discomfort, shortness of breath, dizziness, palpitations, nausea, vomiting or diaphoresis. In 2018 he presented to the hospital with a non-ST elevated myocardial infarction. Echocardiogram and cardiac catheterization revealed left main artery with no high-grade stenosis, LAD with a mild plaque in the proximal segment approximately 20-30%, area of haziness noted at the takeoff of the first septal playback operator with a brisk flow distally and no high-grade stenosis, circumflex artery with a mild plaque 20- 30%, RCA with a proximal plaque of 20%. Echocardiogram revealed preserved LV function with apical hypokinesia and ejection fraction 50% and no significant MR. At that time he was placed on dual antiplatelet therapy and risk factor modification. His [place] was thought to be secondary to plaque rupture. DIAGNOSTICS EKG reveals sinus mechanism with T-wave inversions noted inferolaterally. Chest xray negative for acute cardiopulmonary process. Laboratory reviewed, WBC on admission 14.4, hemoglobin 14.2, platelets 149, sodium 139, potassium 4.7, creatinine 0.96, magnesium 1.7, cardiac enzymes negative 3, LDL 46. Current cardiac medications include aspirin 81 mg daily, atorvastatin 80 mg daily, Imdur 30 mg daily, Toprol 25 mg daily and lisinopril 5 mg at bedtime. REVIEW OF SYSTEMS At the time of my exam: CONSTITUTIONAL: Denies fever or chills. CARDIOVASCULAR: Denies chest pain, shortness of breath, orthopnea, PND or pal pitations. RESPIRATORY: Denies cough. GASTROINTESTINAL: Denies abdominal pain, diarrhea, constipation, nausea or vomiting. MUSCULOSKELETAL: Denies myalgias. NEUROLOGIC: Denies numbness, tingling or weakness. ENDOCRINE: Denies fatigue, weight change, polydipsia or polyurina. GENITOURINARY: Denies burning, hematuria or urgency with micturation. HEMATOLOGIC: Denies history of anemia or bleeding. PHYSICAL EXAMINATION Blood pressure 143/80 heart rate 63 afebrile and maintaining oxygen saturation on room air. CONSTITUTIONAL: No apparent distress. HEENT: Head is normocephalic. Pupils are equal, round. Sclerae anicteric. Mucous membranes of the mouth are moist. No JVD. No carotid bruit. CHEST EXAMINATION: Lungs are clear to auscultation. No chest wall tenderness is noted on palpation or with deep breathing. HEART EXAMINATION: Regular rate and rhythm. S1, S2 heard. No murmurs, gallops or rub. ABDOMEN: Soft, nontender. Positive bowel sounds. EXTREMITIES: 2+ peripheral pulses, no lower extremity edema and no calf tenderness. NEUROLOGIC EXAMINATION: Patient is awake, alert and oriented x3. ASSESSMENT Weakness and fatigue associated with mild hypotension Leukocytosis History of myocardial infarction secondary to plaque rupture Hypertension Dyslipidemia Frequent headaches PLAN An acute coronary event has been ruled out. Symptoms are atypical to be related to angina. Possibly related to hypotension. Given his ongoing and frequent headaches since being placed on Imdur even at a decreased dose we will discontinue and evaluate for exertional chest pain. Obtain 2-D echocardiogram and Doppler study to assess cardiac structure and function. Once echo has been obtained and reviewed stable with no changes he can be discharged to follow-up in the outpatient setting with Dr. Basurto. Medical management and evaluation of leukocytosis. Thank you kindly for this consultation. Nurse Practitioner note has been reviewed, I agree with a documented findings and plan of care. Patient was seen and examined. Past Medical History Past Medical History: Hyperlipidemia, Hypertension, Myocardial Infarction ([place]), Skin Disorder Last Myocardial Infarction Date:: 01/20/18 History of Any Multi-Drug Resistant Organisms: None Reported Past Surgical History: Appendectomy, Heart Catheterization, Hernia Repair Additional Past Surgical History / Comment(s): facial surgery Past Anesthesia/Blood Transfusion Reactions: No Reported Reaction Past Psychological History: No Psychological Hx Reported Smoking Status: Never smoker Past Alcohol Use History: Occasional Past Drug Use History: None Reported - Past Family History Father Family Medical History: CVA/TIA Additional Family Medical History / Comment(s): STROKE Mother Additional Family Medical History / Comment(s): VASCULAR TO LOWER EXT Medications and Allergies Home Medications Medication Instructions Recorded Confirmed Type Fexofenadine/Pseudoephedrine 1 tab PO DAILY 01/19/18 11/14/19 History [Zina-D 24 Hour Tablet] Montelukast [Singulair] 10 mg PO HS 01/19/18 11/14/19 History lisinopriL [Zestril] 5 mg PO HS 01/19/18 11/14/19 History Aspirin 81 mg PO DAILY #30 chew 01/21/18 11/14/19 Rx Atorvastatin [Lipitor] 80 mg PO DAILY #30 tab 01/21/18 11/14/19 Rx Isosorbide Mononitrate ER [Imdur] 30 mg PO DAILY #30 tab.er.24h 01/24/18 11/14/19 Rx Apremilast [Otezla] 30 mg PO BID 11/14/19 11/14/19 History Fluticasone Propionate [Flonase 1 spray EA NOSTRIL BID PRN 11/14/19 11/14/19 History Allergy Relief] Metoprolol Succinate [Toprol XL] 25 mg PO DAILY 11/14/19 11/14/19 History Allergies Allergy/AdvReac Type Severity Reaction Status Date / Time No Known Allergies Allergy Verified 11/14/19 16:58 Physical Exam Vitals: Vital Signs Temp Pulse Pulse Pulse Pulse Pulse Resp 11/15/19 08:49 97.8 F 63 16 11/15/19 04:00 97.7 F 57 L 61 62 18 11/14/19 20:55 97.6 F 58 L 60 56 L 18 11/14/19 16:06 18 11/14/19 15:05 98.2 F 56 L 18 11/14/19 14:48 97.9 F 54 L 16 11/14/19 14:34 64 18 11/14/19 13:29 67 67 64 16 11/14/19 13:00 98.3 F 59 L 18 BP BP BP BP BP Pulse Ox 11/15/19 08:49 143/80 96 11/15/19 04:00 122/79 144/88 116/69 98 11/14/19 20:55 122/80 126/76 114/69 97 11/14/19 16:06 11/14/19 15:05 106/70 95 11/14/19 14:48 112/66 98 11/14/19 14:34 99/63 95 11/14/19 13:29 116/83 105/74 110/65 98 11/14/19 13:00 113/71 98 Intake and Output 11/14/19 11/15/19 11/15/19 22:59 06:59 14:59 Other: Voiding Method Toilet Toilet Toilet # Voids 3 1 Results 11/15/19 05:45 11/15/19 05:45 Cardiac Enzymes 11/14/19 11/14/19 11/14/19 Range/Units 13:28 13:28 15:37 AST 33 (17-59) U/L Troponin I <0.012 <0.012 (0.000-0.034) ng/mL 11/14/19 Range/Units 17:53 AST (17-59) U/L Troponin I <0.012 (0.000-0.034) ng/mL Coagulation 11/14/19 Range/Units 13:28 PT 10.5 (9.0-12.0) sec APTT 20.8 L (22.0-30.0) sec Lipids 11/15/19 Range/Units 05:45 Triglycerides 57 (<150) mg/dL Cholesterol 103 (<200) mg/dL HDL Cholesterol 46 (40-60) mg/dL CBC 11/14/19 11/15/19 Range/Units 13:28 05:45 WBC 14.4 H 6.4 (3.8-10.6) k/uL RBC 5.20 4.84 (4.30-5.90) m/uL Hgb 15.6 14.2 (13.0-17.5) gm/dL Hct 45.6 43.6 (39.0-53.0) % Plt Count 215 149 L (150-450) k/uL Comprehensive Metabolic Panel 11/14/19 11/15/19 Range/Units 13:28 05:45 Sodium 138 139 (137-145) mmol/L Potassium 4.6 4.7 (3.5-5.1) mmol/L Chloride 107 108 H (98-107) mmol/L Carbon Dioxide 21 L 26 (22-30) mmol/L BUN 22 H 19 (9-20) mg/dL Creatinine 1.11 0.96 (0.66-1.25) mg/dL Glucose 102 H 90 (74-99) mg/dL Calcium 9.7 8.6 (8.4-10.2) mg/dL AST 33 (17-59) U/L ALT 35 (4-49) U/L Alkaline Phosphatase 48 (38-126) U/L Total Protein 6.9 (6.3-8.2) g/dL Albumin 4.5 (3.5-5.0) g/dL Current Medications Generic Name Dose Route Start Last Admin Trade Name Freq PRN Reason Stop Dose Admin Aspirin 81 mg 11/15/19 09:00 11/15/19 08:56 Aspirin PO 81 mg DAILY RADHA Administration Atorvastatin Calcium 80 mg 11/15/19 09:00 11/15/19 08:55 Lipitor PO 80 mg DAILY RADHA Administration Fluticasone Propionate 1 spray 11/14/19 18:28 Flonase Nasal [place] EA NOSTRIL BID PRN seasonal allergies Sodium Chloride 1,000 mls @ 100 mls/hr 11/14/19 14:45 11/15/19 05:11 Saline 0.9% IV 100 mls/hr .Q10H RADHA Administration Loratadine/Pseudoephedrine Sulfate 1 each 11/15/19 09:00 11/15/19 08:56 Claritin-D 12 Hr PO 1 each BID RADHA Administration Montelukast Sodium 10 mg 11/14/19 21:00 11/14/19 20:23 Singulair PO 10 mg HS RADHA Administration Nitroglycerin 0.4 mg 11/14/19 14:39 Nitrostat SUBLINGUAL Q5M PRN Chest Pain Patient's Own ( 30 mg 11/14/19 21:00 11/15/19 09:22 Apremilast [Otezla] PO Not Given 30 Mg) BID RADHA Intake and Output 11/14/19 11/15/19 11/15/19 22:59 06:59 14:59 Other: Voiding Method Toilet Toilet Toilet # Voids 3 1 11/15/19 05:45 11/15/19 05:45
[2019-11-15] MEDS ORDERED: METOPROLOL SUCCINATE (ER) 25 MG TAB.ER.24H PO SCH (09:45)
--- NOTE | 2019-11-15 12:00 | ECHOF ---
Referral Reason:weakness, EKG changes MEASUREMENTS -------- HEIGHT: 175.3 cm WEIGHT: 70.3 kg BP: 104/59 RVIDd: 4.0 cm (< 3.3) IVSd: 1.2 cm (0.6 - 1.1) LVIDd: 5.4 cm (3.9 - 5.3) LVPWd: 1.4 cm (0.6 - 1.1) IVSs: 1.6 cm LVIDs: 3.7 cm LVPWs: 1.8 cm LAESV Index (A-L): 47.87 ml/m Ao Diam: 3.0 cm (2.0 - 3.7) AV Cusp: 2.3 cm (1.5 - 2.6) MV EXCURSION: 18.649 mm (> 18.000) MV EF SLOPE: 95 mm/s (70 - 150) EPSS: 0.8 cm MV E Juancho: 0.73 m/s MV DecT: 168 ms MV A Juancho: 0.55 m/s MV E/A Ratio: 1.35 RAP: 5.00 mmHg RVSP: 38.31 mmHg FINDINGS -------- This was a technically adequate study. The left ventricular size is normal. There is mild concentric left ventricular hypertrophy. Overa ll left ventricular systolic function is normal with, an EF between 55 - 60 %. The diastolic fillin g pattern is normal for the age of the patient 8.27. The right ventricle is moderately enlarged. LA is severely dilated >40 ml/m2 The right atrium is mildly enlarged. Interatrial septal aneurysm. The aortic valve is trileaflet and appears structurally normal. There is no evidence of aortic regu rgitation. There is no evidence of aortic stenosis. Gevy-ko-fkqudaxf mitral regurgitation is present. Mild tricuspid regurgitation present. There is mild pulmonary hypertension. The right ventricular systolic pressure, as measured by Doppler, is 38.31mmHg. There is no pulmonic regurgitation present. The aortic root size is normal. The inferior vena cava is mildly dilated. There is no pericardial effusion. CONCLUSIONS -------- 1. The left ventricular size is normal. 2. There is mild concentric left ventricular hypertrophy. 3. Overall left ventricular systolic function is normal with, an EF between 55 - 60 %. 4. The diastolic filling pattern is normal for the age of the patient 8.27 5. The right ventricle is moderately enlarged. 6. LA is severely dilated >40 ml/m2 7. The right atrium is mildly enlarged. 8. Interatrial septal aneurysm. 9. Xger-no-lflifqjd mitral regurgitation is present. 10. Mild tricuspid regurgitation present. 11. There is mild pulmonary hypertension. 12. The right ventricular systolic pressure, as measured by Doppler, is 38.31mmHg. 13. The inferior vena cava is mildly dilated. 14. There is no pericardial effusion. MARINE ENGINEERING PROFESSOR: Apoorva Duong RDCS
--- NOTE | 2019-11-15 17:11 | P.DS ---
Providers Date of admission: 11/14/19 14:39 Attending physician: Arlene Hendrickson Consults: 11/14/19 14:39 Consult Physician Urgent Consulting Provider: Kirby Garcia Consult Reason/Comments: Cardiac evaluation Do you want consulting provider notified?: Yes Primary care physician: Nimo Santana [facility] Course: 59-year-old pleasant gentleman was admitted secondary to syncope and patient is found to have very low blood pressure and the history was considered secondary to dehydration received IV fluids. Patient had an echo cardiac exam which showed normal ejection fraction. Patient is also on antidepressant medications I asked him to check his blood pressure 3 times a day and counseling was provided regarding appropriate way to check the blood pressure and take it to PCPs office with the readings so that blood pressure medications can be titrated. Patient will be discharged today without any changes in his home medications. PHYSICAL EXAMINATION: GENERAL: The patient is alert and oriented x3, not in any acute distress. Well developed, well nourished. HEENT: Pupils are round and equally reacting to light. EOMI. No scleral icterus. No conjunctival pallor. Normocephalic, atraumatic. No pharyngeal erythema. No thyromegaly. CARDIOVASCULAR: S1 and S2 present. No murmurs, rubs, or gallops. PULMONARY: Chest is clear to auscultation, no wheezing or crackles. ABDOMEN: Soft, nontender, nondistended, normoactive bowel sounds. No palpable organomegaly. MUSCULOSKELETAL: No joint swelling or deformity. EXTREMITIES: No cyanosis, clubbing, or pedal edema. NEUROLOGICAL: Gross neurological examination did not reveal any focal deficits. SKIN: No rashes. For rest of the medical problems and hospitalization course please refer to HPI from Dr. Hendrickson from yesterday Plan - Discharge Summary Discharge Rx Participant: No New Discharge Prescriptions: Continue lisinopriL [Zestril] 5 mg PO HS Montelukast [Singulair] 10 mg PO HS Fexofenadine/Pseudoephedrine [Zina-D 24 Hour Tablet] 1 tab PO DAILY Aspirin 81 mg PO DAILY #30 chew Atorvastatin [Lipitor] 80 mg PO DAILY #30 tab Isosorbide Mononitrate ER [Imdur] 30 mg PO DAILY #30 tab.er.24h Metoprolol Succinate [Toprol XL] 25 mg PO DAILY Apremilast [Otezla] 30 mg PO BID Fluticasone Propionate [Flonase Allergy Relief] 1 spray EA NOSTRIL BID PRN PRN Reason: seasonal allergies Discharge Medication List Fexofenadine/Pseudoephedrine [Zina-D 24 Hour Tablet] 1 tab PO DAILY 01/19/18 [History] Montelukast [Singulair] 10 mg PO HS 01/19/18 [History] lisinopriL [Zestril] 5 mg PO HS 01/19/18 [History] Aspirin 81 mg PO DAILY #30 chew 01/21/18 [Rx] Atorvastatin [Lipitor] 80 mg PO DAILY #30 tab 01/21/18 [Rx] Isosorbide Mononitrate ER [Imdur] 30 mg PO DAILY #30 tab.er.24h 01/24/18 [Rx] Apremilast [Otezla] 30 mg PO BID 11/14/19 [History] Fluticasone Propionate [Flonase Allergy Relief] 1 spray EA NOSTRIL BID PRN 0 11/14/19 [History] Metoprolol Succinate [Toprol XL] 25 mg PO DAILY 11/14/19 [History] Follow up Appointment(s)/Referral(s): Trina Basurto MD [STAFF PHYSICIAN] - 11/29/19 10:00 am (Appointment will be with Nimisha OCONNOR) Nimo Anders III, MD [Primary Care Provider] - 11/18/19 10:00 am (Appointment will be with Shelby Mercado NP) Patient Instructions/Handouts: Dehydration (GEN), Near Syncope (GEN) Discharge Disposition: HOME SELF-CARE
[2019-11-15] MEDS ORDERED: lisinopriL 5 MG TAB PO SCH (21:00)
== END 2019-11-15 14:50 | disposition home or self-care (01) ==
LOC: EC 12:56 → 3NCARDOBS 14:39
PROVIDERS: ADMIT Hospitalist; ATTEND Hospitalist
DX: R55 Syncope and collapse (principal); I95.9 Hypotension, unspecified; R51 Headache; R53.1 Weakness; D72.829 Elevated white blood cell count, unspecified; E86.0 Dehydration; I10 Essential (primary) hypertension; E78.5 Hyperlipidemia, unspecified; I25.2 Old myocardial infarction; Z90.49 Acquired absence of other specified parts of digestive tract; Z79.899 Other long term (current) drug therapy; Z79.82 Long term (current) use of aspirin; Z82.3 Family history of stroke
CPT/HCPCS: 93005 ×2; 99285; 36415; 93306; 80061; 80053; 80048; 83605; 83735; 84484; 85025 ×2; 85610; 85730; 81001; 71046; 70450; G0378 ×2

== ENCOUNTER 2022-03-07 10:08 | Day surgery (SDC) | payer BC ==
[2022-03-04 16:22] VITALS: BMI 23.3
[2022-03-07] MEDS: LACTATED RINGERS 1,000 ML IV SCH ×2 (11:03→12:26)
[2022-03-07 11:11] VITALS: TEMP 97
[2022-03-07] MEDS ORDERED: PROPOFOL 10 MG/ML 20 ML VIAL IV ONE (12:27)
--- NOTE | 2022-03-07 12:48 | P.PCN ---
Date of Procedure: 03/07/22 Procedure(s) Performed: BRIEF HISTORY: Patient is a 61-year-old pleasant white the scheduled for an elective colonoscopy as a part of screening for colon cancer. PROCEDURE PERFORMED: Colonoscopy with biopsy. PREOPERATIVE DIAGNOSIS: Screening for colon cancer. IV sedation per Anesthesia. PROCEDURE: After informed consent was obtained, the patient, was brought into the endoscopy unit. IV sedation was administered by Anesthesia under continuous monitoring. Digital rectal examination was normal. Initially the Olympus CF-160 flexible video colonoscope was then inserted in the rectum, gradually advanced into the cecum without any difficulty. Careful examination was performed as the scope was gradually being withdrawn. Ileocecal valve and the appendiceal orifice were visualized and appeared normal. Prep was excellent. Mucosa of the cecum, ascending colon, there normal. The transverse colon there was a 5 mm polyp was removed by cold biopsy. Rest of the transverse colon, descending colon, sigmoid colon, and rectum appeared normal. Retroflexion was performed in the rectum and no lesions were seen. The patient tolerated the procedure well. IMPRESSION: 5 mm transverse colon polyp status post cold biopsy. Rest of the colon appeared normal RECOMMENDATIONS: Findings of this examination were discussed with the patient as well as his family. He was advised to follow with the biopsy results. If the biopsy reveals adenoma he can have a repeat colonoscopy in 5 years
[2022-03-07 13:19] VITALS: BP 115/70; PULSE 55; RESP 16
== END 2022-03-07 13:35 | disposition home or self-care (01) ==
LOC: ORWHC2ENDO 10:08
PROVIDERS: ATTEND Internal Medicine Gastroenterology
DX: Z12.11 Encounter for screening for malignant neoplasm of colon (principal); K63.5 Polyp of colon; I10 Essential (primary) hypertension; Z79.899 Other long term (current) drug therapy; Z79.1 Long term (current) use of non-steroidal anti-inflammatories (NSAID); Z98.890 Other specified postprocedural states
CPT/HCPCS: 88305; 45380; J2704

== ENCOUNTER → 2023-05-15 | Outpatient (CLI) | payer BC ==
--- NOTE | 2023-05-15 11:04 | US ---
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 Indirect Doppler criteria was utilized. FINDINGS: EXAM MEASUREMENTS: RIGHT: Peak Systolic Velocity (PSV) cm/sec ----- Right CCA: 83.8 ----- Right ICA: 101 ----- Right ECA: 127 ICA/CCA ratio: 1.2 RIGHT: End Diastole cm/sec ----- Right CCA: 22.7 ----- Right ICA: 37 ----- Right ECA: 23.8 LEFT: Peak Systolic Velocity (PSV) cm/sec ----- Left CCA: 110 ----- Left ICA: 101 ----- Left ECA: 111 ICA/CCA ratio: .9 LEFT: End Diastole cm/sec ----- Left CCA: 25.4 ----- Left ICA: 33.6 ----- Left ECA: 21.3 VERTEBRALS (direction of flow): Right Vertebral: Antegrade Left Vertebral: Antegrade Rhythm: Normal BOBBIN PAINTER NOTES: No significant stenosis seen IMPRESSION: No evidence for hemodynamically significant stenosis. Criteria for Assigning % of Stenosis / Diameter reduction (Estimation based on the indirect measurements of the internal carotid artery velocities (ICA PSV). 1. Normal (no stenosis)=ICA PSV < 125 cm/s: ratio < 2.0: ICA EDV<40 cm/s. 2. Less than 50% stenosis=ICA PSV < 125 cm/s: ratio < 2.0: ICA EDV<40 cm/s. 3. 50 to 69% stenosis=ICA PSV of 125 to 230 cm/s: ration 2.0 ? 4.0: ICA EDV 40-100 cm/s. 4. Greater than 70% stenosis to near occlusion= ICA PSV > 230 cm/s: ratio > 4.0: ICA EDV > 100 cm/s. 5. Near occlusion= ICA PSV velocities may be low or undetectable: variable ratio and ICA EDV. 6. Total occlusion=unable to detect flow.
== END | disposition home or self-care (01) ==
LOC: RADUSWWP 09:54
PROVIDERS: ATTEND Internal Medicine
DX: I65.23 Occlusion and stenosis of bilateral carotid arteries (principal)
CPT/HCPCS: 93880

== ENCOUNTER → 2024-01-12 | Outpatient (CLI) | payer BC ==
--- NOTE | 2024-01-13 16:25 | US ---
EXAMINATION TYPE: US kidneys/renal and bladder DATE OF EXAM: 01/12/2024 COMPARISON: CT 2017 CLINICAL INDICATION: Male, 63 years old with history of N18.2 CHRONIC KIDNEY DISEASE, STAGE 2 (MILD); TECHNIQUE: Grayscale imaging of the bilateral kidneys and urinary bladder: FINDINGS: EXAM MEASUREMENTS: Right Kidney: 10.6 x 4.8 x 4.9 cm Left Kidney: 10.8 x 5.3 x 5.0 cm Right Kidney: wnl Left Kidney: wnl Bladder: wnl Bilateral Jets seen: yes No hydronephrosis or hydroureter evident. No shadowing renal stones evident. IMPRESSION: Unremarkable renal ultrasound [facility] Keyonna Box, Workstation: [email or web address], 01/13/2024 4:22 PM
== END | disposition home or self-care (01) ==
LOC: RADUSWWP 09:56
PROVIDERS: ATTEND Internal Medicine
DX: N18.2 Chronic kidney disease, stage 2 (mild) (principal)
CPT/HCPCS: 76770